=== PATIENT | female | born 1935 | race Caucasian/White ===

== ENCOUNTER 2016-10-04 04:14 | Observation (INO) | payer OTHER ==
[~2016-10-04] VITALS: Ht 160 cm; Wt 62.5 kg
--- NOTE | 2016-10-04 05:25 | ED ORDER SUMMARY ---
..... Patient: YOBANY ELAINE OrderSheet [facility] VisitID: [id number] [address] [place] [address] 81y, F Registration Date/Time: 10/04/2016 ORDER SHEET Weight: 61.2 kg (stated) Allergies: No Known Drug Allergy GENERAL ORDERS: Chest 1V Urgent (04:35 10/04/2016 PHutchinson DO) (Ack 4:37 AMcQuoid ER Tech1) (4:45 AMcQuoid ER Tech1) Justice Court Judge (Continuous) (04:35 10/04/2016 PHutchinson DO) (Ack 4:37 AMcQuoid ER Tech1) (4:38 EInderbitzen R.N.) (4:38 AMcQuoid ER Tech1) UA-Culture if indicated Urgent (04:36 10/04/2016 PHutchinson DO) (Ack 4:37 AMcQuoid ER Tech1) (5:13 AMcQuoid ER Tech1) Cardiac Panel Stat (04:36 10/04/2016 PHutchinson DO) (Ack 4:37 AMcQuoid ER Tech1) (4:38 AMcQuoid ER Tech1) BNP Urgent (04:36 10/04/2016 PHutchinson DO) (Ack 4:37 AMcQuoid ER Tech1) (4:38 AMcQuoid ER Tech1) D-Dimer Urgent (04:36 10/04/2016 PHutchinson DO) (Ack 4:37 AMcQuoid ER Tech1) (4:38 AMcQuoid ER Tech1) Amylase Urgent (04:36 10/04/2016 PHutchinson DO) (Ack 4:37 AMcQuoid ER Tech1) (4:38 AMcQuoid ER Tech1) PT with INR Urgent (04:36 10/04/2016 PHutchinson DO) (Ack 4:37 AMcQuoid ER Tech1) (4:38 AMcQuoid ER Tech1) TSH Urgent (04:36 10/04/2016 PHutchinson DO) (Ack 4:37 AMcQuoid ER Tech1) (4:38 AMcQuoid ER Tech1) Oxygen (2 L/min) (NC) (04:36 10/04/2016 [facility]) (Ack 4:37 AMcQuoid ER Tech1) (4:38 EInderbitzen R.N.) (4:38 AMcQuoid ER Tech1) Pulse oximeter (04:36 10/04/2016 [facility]) (Ack 4:37 AMcQuoid ER Tech1) (4:38 EInderbitzen R.N.) (4:38 AMcQuoid ER Tech1) EKG - ER Stat (04:36 10/04/2016 [facility]) (Ack 4:37 AMcQuoid ER Tech1) (4:38 EInderbitzen R.N.) (4:38 AMcQuoid ER Tech1) Vitals (04:36 10/04/2016 [facility]) (Ack 4:37 AMcQuoid ER Tech1) (4:38 EInderbitzen R.N.) (4:38 AMcQuoid ER Tech1) Old Records (prmce) (04:47 10/04/2016 [facility]) (4:48 AMcQuoid ER Tech1) CTA Thorax w Cont (No) (N/A) (elevated d-dimer) Urgent (05:05 10/04/2016 [facility]) (Ack 5:07 AMcQuoid ER Tech1) (5:49 Susanne) Lipase Urgent (05:51 10/04/2016 [facility]) (5:55 AMcQuoid ER Tech1) MEDICATION ORDERS: Albuterol Neb Tx 2 unit doses (NOW, HHN) (04:47 10/04/2016 [facility]) (Ack 4:49 EInderbitzen R.N.) (4:55 EInderbitzen R.N.) Lovenox Subcut 60 mg (NOW) (05:25 10/04/2016 [facility]) (Ack 5:28 EInderbitzen R.N.) (5:47 EInderbitzen R.N.) Azithromycin PO 500 mg (NOW) (05:35 10/04/2016 [facility]) (Ack 5:39 EInderbitzen R.N.) (5:47 EInderbitzen R.N.) IV FLUIDS: IV NS : initial bolus 250 mL (1000 mL/hr), then 250 mL/hr for X3 (NOW) (04:35 10/04/2016 Fannie HERNANDEZ) (Ack 4:39 EInderbittiffany R.N.) (4:50 EInderbitzen R.N.) Solu-MEDROL IV 125 mg (NOW) (04:48 10/04/2016 hansel HERNANDEZ) (Ack 4:49 EInderbitzen R.N.) (4:56 EIndpapito R.N.) ORDER SHEET NOTES: [Electronically signed by Vinayak Gu DO (06:40 10/04/2016)] [Electronically signed by Adela Lindsey R.N. (20:56 10/08/2016)] [Electronically locked/signed by Adela Lindsey R.N. (20:56 10/08/2016)]
--- NOTE | 2016-10-04 05:25 | ED NURSING NOTES ---
Clinical Report - Nurses [facility] [address] [place] [address] 10/04/2016 4:14 [id number] Triage time 04:Oct 04 2016. Acuity: LEVEL 2. Chief Complaint: SHORTNESS OF BREATH, "ASTHMA ATTACK" and WHEEZING. 04:20 10/04/16. SEPSIS SCREEN: Sepsis Screen. Negative (no infection suspected/documented). MARLEN COMA SCORE: Marlen Coma Scale: 15- eyes open spontaneously (4); best verbal response- oriented x 4 (5); best motor response- obeys commands (6). --04:30 Adela Lindsey R.N. 04:20 10/04/16. BP: 154/73. HR: 86. RR: 24. O2 saturation: 90%. Temp: 97.7 F. Pain level now 0/10. --04:30 Adela Lindsey R.N. Weight: 61.2 kg stated. Height/Length: 63 inches Per Patient. BMI: 23.9. --04:20 Adela Lindsey R.N. Medications Atenolol Oral (Tablet 100 mg) 1 tablet, daily (morning). --04:34 Adela Lindsey R.N. Citalopram Hydrobromide Oral (Tablet 20 mg) 1 tablet, daily (morning). --04:34 Adela Lindsey R.N. AmLODIPine Besylate Oral (Tablet 5 mg) 1 tablet, 2x a day. --04:35 Adela Lindsey R.N. Lisinopril Oral (Tablet 20 mg) 1 tablet, 2x a day. --04:35 Adela Lindsey R.N. Atorvastatin Calcium Oral (Tablet 20 mg) 1 tablet, daily (evening). --04:36 Adela Lindsey R.N. Aspirin Oral (Tablet 81 mg) 1 tablet, daily (evening). --04:36 Adela Lindsey R.N. Albuterol Sulfate HFA Inhalation (Aerosol Solution 108 (90 Base) mcg/act) 2 puffs , 4x a day as needed. --04:37 Adela Lindsey R.N. Allergies No Known Drug Allergy. --04:22 Adela Lindsey R.N. Medication/allergy information source: the patient. --04:30 Adela Lindsey R.N. History Arrived by EMS. Historian: patient. This started today. Onset. (0100 this morning). ( states woke at 0100 this morning a bit short of breath,it got progressively worse, was unable to fall back asleep. called ems for help). She has had a cough and wheezing. No fever, chills, chest pain or back pain. Treatment LEGISLATIVE ASSISTANT: Oxygen administered by nasal cannula. Pulse oximeter applied (90). engine monitor applied- Lead II. Medications given- (duoneb). PAST MEDICAL HX: Immunizations: seasonal influenza. Has not received pneumonia vaccine. SOCIAL HX: Current some days light tobacco smoker. No alcohol use or drug use. No infectious disease exposure. ABUSE ASSESSMENT: No report of abuse. SELF HARM ASSESSMENT: A self harm assessment was performed. The patient answered "no" to the question "Have you recently felt down, depressed, or hopeless?", "Have you noticed less interest or pleasure in doing things?", "Do you have thoughts of harming or killing yourself?", "Are you here because you tried to hurt yourself?", "Have you ever tried to hurt yourself before today?", "Have you recently had thoughts about harming or killing others?" and "Do you have any dangerous items in your possession?". NUTRITIONAL RISK ASSESSMENT: The nutritional risk assessment revealed no deficiencies. FUNCTIONAL ASSESSMENT: Functional assessment: no impairments noted. LEARNING NEEDS ASSESSMENT: The learning needs assessment revealed no barriers. SKIN INTEGRITY ASSESSMENT: Skin integrity risk assessment completed. No skin integrity risk identified. --04:30 Adela Lindsey R.N. PROBLEMS: Hypercholesterolemia. Hypertension. Peripheral Vascular Disease. COPD - Chronic Obstructive Pulmonary Disease. --04:24 Indyfnzen, Adela, R.N. ADDITIONAL SURGERIES: Peripheral stents. --04:24 dAela Lindsey R.N. Interventions ID band on patient. --04:30 Adela Lindsey R.N. PHYSICAL ASSESSMENT 04:10/04/16. To room via stretcher. GENERAL / NEURO / PSYCH: Alert. Appears anxious. HEENT: Mucous membranes are pink. RESPIRATORY: Mild respiratory distress. The patient can speak a few words at a time. Wheezing present. CVS: Normal sinus rhythm noted. GI / : Abdomen soft. SKIN: Skin is dry. Skin is cool. Normal skin turgor. --04:30 Adela Lindsey R.N. NURSING PROGRESS NOTES 04:10/04/16. The initial plan of care for this patient includes an assessment with efforts to address patient positioning; impairment of the respiratory system; educational needs regarding the patient's medications. This plan of care was discussed with the patient. engine monitor, pulse oximeter and NIBP monitor placed on patient; engine monitor- Lead II; monitor alarms on. Patient gowned. Reassurance given. Patient identifiers checked. Call light placed in reach. Side rails up x 2. Bed placed in lowest position. Brakes of bed on. Patient ready for evaluation. --04:31 Adela Lindsey R.N. 04:37. per RT. --04:41 McQuoid, Gina, ER Tech1 04:37. EKG was performed. per RT. --04:42 McQuoid Gina, ER Tech1 Telemetry strip posted to chart. --04:42 McQuoid Gina, ER Tech1 04:37 Records requested from [facility] [place]. --04:42 McQuarlette Gina, ER Tech1 04:44 Portable CXR in progress. --04:44 McToyin Gina, ER Tech1 04:20 10/04/2016 Site #1 started prior to arrival by EMS via IV in the left hand with an 20g angiocath; one attempt. --04:50 Adela Lindsey R.N. 04:45 10/04/2016 Started bag #1 1000 mL IV Fluids IV NS (Saline); bolus of 250 mL over 15 minute(s) then at 250 mL/hr over 3 hour(s) via site #1 via IV pump. Allergies verified. IV patency established. IV site checked: no pain, redness, or swelling. IV flushed thoroughly pre- and post-medication administration. --04:50 Adela Lindsey R.N. 04:50 10/04/2016 Albuterol Neb TX Nebulizer 2.5 mg given. Given by the respiratory therapist. Allergies verified and confirmed 5 rights. --04:55 Adela Lindsey R.NBean 04:53 10/04/2016 SOLU-MEDROL (MethylPREDNISolone Sodium Succ) IVP 125 mg given over 2 minute(s) via site #1. Allergies verified and confirmed 5 rights. IV patency established. IV site checked: no pain, redness, or swelling. IV flushed thoroughly pre- and post-medication administration. IVP given by RN. --04:56 Adela Lindsey R.NBean 05:05. Checked patient name and birthdate: patient confirmed. Clean catch urine collected; sample sent to lab. Specimen labeled in the presence of the patient. --05:13 Gina Ontiveros ER Tech1 05:17 10/04/2016 Site #2 started via IV in the right antecubital space with an 18g angiocath, with aseptic technique and good blood return; one attempt. Saline lock flushed with 10 mL saline. --05:19 Adela Lindsey R.NBean 05:19 10/04/16. BP: 160/71. HR: 90. RR: 24. O2 saturation: 92%. Pain level now 0/10. --05:19 Adela Lindsey R.NBean 05:19 10/04/16. Cardiac rhythm: normal sinus rhythm. The patient reports no complaints and she is calm. Overall patient status is improved- she states feels better. --05:19 Adela Lindsey R.NBean 05:27. Patient transported to CT by stretcher with tech. --05:28 Gina Ontiveros ER Tech1 05:29 10/04/16. Patient transported to CT by stretcher with tech. --05:29 Adela Lindsey R.NBean 05:42. Patient returned from CT by stretcher with tech. --05:42 McQuoid, Gina, ER Tech1 05:44 10/04/16. BP: 156/70. HR: 91. RR: 22. O2 saturation: 93%. Pain level now 0/10. --05:48 Adela Lindsey R.NBean 05:44 10/04/16. Cardiac rhythm: normal sinus rhythm. The patient reports no complaints and she is calm and resting quietly. Overall patient status is improved- she states feels better. ( still has wheezing but improved). Patient returned from CT by stretcher with O2 and tech. --05:48 Adela Lindsey R.NBean 05:45 10/04/2016 Azithromycin PO Tablets 500 mg given. Allergies verified and confirmed 5 rights. --05:47 Adela Lindsey R.NBean 05:46 10/04/2016 Lovenox (Enoxaparin Sodium) Subcutaneous 60 mg given. Given in the left abdomen. Allergies verified and confirmed 5 rights. --05:47 Adela Lindsey R.N. DISPOSITION / DISCHARGE 05:53 10/04/2016 Site #[address] upon admission; patent. --05:53 Adela Lindsey R.NBean 05:53 10/04/2016 IV Fluids IV NS Continued: at the rate of 250 mL/hr. 600 mL remaining bag #1. IV patency established. IV site checked: no pain, redness, or swelling. IV flushed thoroughly. --05:53 Adela Lindsey R.NBean 05:54 10/04/2016 Site #[address] upon admission; patent. --05:54 Adela Lindsey R.NBean 05:54 10/04/16. Cardiac rhythm: normal sinus rhythm. Condition at departure: improved and stable. The goals identified in the patient's plan of care were met. Admitted to Acute Care. Transported via stretcher by tech with IV and O2. Report was given to a nurse via a phone call. Report included patient's care, treatment, medications, reviewed medication reconcilliation, and condition (including any recent changes or anticipated changes). All questions were answered. (to MARLY Valencia). --05:54 Adela Lidnsey R.N. 05:47 10/04/16. BP: 156/70. HR: 91. RR: 22. O2 saturation: 93%. Pain level now 0/10. 05:19 10/04/16. BP: 160/71. HR: 90. RR: 24. O2 saturation: 92%. Pain level now 0/10. 04:55 10/04/16. BP: 137/71. HR: 80. RR: 24. O2 saturation: 93%. Pain level now: 0/10. 04:21 10/04/16. BP: 154/73. HR: 86. RR: 24. O2 saturation: 90%. Temp: 97.7 F. Pain level now 0/10. --05:54 Adela Lindsey R.N. 05:55 10/04/16. ( MD at bedside to review all finding and plan of admission). --05:55 Adela Lindsey R.N. Locked/Released at 10/08/2016 20:56 by Adela Lindsey R.N.
--- NOTE | 2016-10-04 05:25 | ED CLINICAL REPORT ---
Clinical Report - Physicians/Mid Levels [facility] [address] [place] [address] 10/04/2016 4:14 Patient: YOBANY ELAINE Time Seen: 04:34. Arrived- By ambulance. Historian- patient and EMS personnel. HISTORY OF PRESENT ILLNESS Chief Complaint: DYSPNEA and HISTORY OF CHRONIC OBSTRUCTIVE PULMONARY DISEASE. This started about 3 hours ago and is still present. It was gradual in onset and has been constant. The dyspnea is severe and is worsened by exertion, is improved by rest and is improved with oxygen. The patient has had a cough . No blood tinged sputum or frankly bloody sputum, wheezing and dyspnea on exertion. No fever, chest pain, orthopnea or paroxysmal nocturnal dyspnea. Similar symptoms previously: Milder. ( Had similar episode necessitating several day admission to [facility] last month - pt states the episode today was "worse"). Recent medical care: The patient was seen recently at another facility in the emergency department. Seen for similar symptoms. REVIEW OF SYSTEMS The patient is post-menopausal. She has had joint pain, but not had weight loss. No sore throat, nasal discharge, sinus drainage, nausea or vomiting. No abdominal pain, diarrhea, black stools, bloody stools or headache. No fainting episodes, difficulty with urination, excessive urination, skin rash or enlarged lymph nodes. Denies current . All systems otherwise negative, except as recorded above. PAST HISTORY PROBLEMS: Chronic LBBB Hypercholesterolemia. Hypertension. Hypothyroidism. Peripheral Vascular Disease. COPD - Chronic Obstructive Pulmonary Disease. DVT. Gallstones with duct stone removed by ERCP [facility]. SURGERIES: Peripheral vascular stents - done in [place] [facility] Hysterectomy Tubal ligation. Medications: Albuterol Sulfate HFA Inhalation (Aerosol Solution 108 (90 Base) mcg/act) 2 puffs , 4x a day as needed. Aspirin Oral (Tablet 81 mg) 1 tablet, daily (evening). Atorvastatin Calcium Oral (Tablet 20 mg) 1 tablet, daily (evening). Lisinopril Oral (Tablet 20 mg) 1 tablet, 2x a day. AmLODIPine Besylate Oral (Tablet 5 mg) 1 tablet, 2x a day. Citalopram Hydrobromide Oral (Tablet 20 mg) 1 tablet, daily (morning). Atenolol Oral (Tablet 100 mg) 1 tablet, daily (morning). Allergies: No Known Drug Allergy. SOCIAL HISTORY Smoker- current status unknown. No alcohol use or drug use. Residence: born in [facility]; recently moved from the [facility] to [place] Is a local resident. Has good social support. FAMILY HISTORY Heart disease in first-degree relative (a child); cancer in first-degree relative (father and sibling). ADDITIONAL NOTES The nursing notes have been reviewed. PHYSICAL EXAM Vital Signs: 10/04/2016 04:20 BP: 154/73. HR: 86. RR: 24. O2 saturation: 90%. Temp: 97.7 F. Appearance: Alert. Patient in moderate distress. Eyes: Eyes normal inspection. No pale conjunctivae or scleral icterus. ENT: Pharynx normal. Uvula midline. No pharyngeal erythema. The mucous membranes are not dry. Neck: Normal inspection. No jugular venous distention. Neck supple. CVS: Normal heart rate and rhythm. Pulses normal. Respiratory: Moderate respiratory distress with accessory muscle use, tachypnea and hypoventilation. Prolonged expirations. Decreased air movement. Wheezing present. No stridor, rales or rhonchi. Abdomen: Soft and nontender. Back: Normal inspection. Skin: Skin warm and dry. Normal skin color. Normal skin turgor. Extremities: Extremities exhibit normal ROM. No calf tenderness. No lower extremity edema. Neuro: Oriented X 3. No motor deficit. LABS, X-RAYS, AND EKG EKG: EKG time: (04:37). Normal sinus rhythm. Rate: 85. LBBB. Non-specific ST segment / T wave abnormalities. EKG unchanged when compared with prior EKG. (vs report from [facility] 08/2016). The study has been interpreted contemporaneously by me. The EKG appears to be a good tracing. Rhythm Strip #1: Normal sinus rhythm. Regular rhythm. Wide QRS complexes. Left bundle branch block. Chest X-ray: No acute disease. Views: AP (portable). Technique: good. The X-rays were interpreted contemporaneously by me. The X-rays were discussed with the radiologist (via PACS note). CTA Pulmonary Arteries: Great vessels normal. No evidence of pulmonary embolism. No pulmonary embolism. Normal heart size. Mediastinum normal. No pneumothorax. Right lung base nodule Aorta calcification IMPRESSION: 1. No evidence of pulmonary embolus. 2. Mild interstitial change at the right lung base with moderate bronchial wall thickening. Consider bronchopneumonia or resolving pneumonia. 3. There is a 7 mm nodular density in the right anterior mid lung which is most likely postinflammatory, although a neoplastic nodule should be considered. Comparison with prior outside studies may be of assistance in evaluating. If these are unavailable, repeat noncontrast CT in 6 weeks is recommended. 4. Marked calcified atheromatous changes of the aorta and great vessels. The CTA was performed with contrast. The study was independently viewed by me, interpreted by the radiologist and discussed with the radiologist. Laboratory Tests: UA-Culture if indicated: (ANUP: 10/04/2016 05:05) ( [facility] 10/04/2016 05:21) Final results Test Result Flag Units (Reference) URINE COLOR YELLOW URINE APPEARANCE CLEAR URINE GLUCOSE NEGATIVE (NEGATIVE) URINE BILIRUBIN NEGATIVE (NEGATIVE) URINE KETONE NEGATIVE (NEGATIVE) URINE SPECIFIC GRAVITY 1.020 (1.010-1.030) URINE PH 7.5 (5.0-8.0) URINE PROTEIN 2+ (NEGATIVE) URINE UROBILINOGEN 0.2 EU/dL (0.2-1.0) URINE NITRITE NEGATIVE (NEGATIVE) URINE BLOOD TRACE-INTACT (NEGATIVE) URINE LEUK ESTERASE NEGATIVE (NEGATIVE) URINE RBC 0-1 rbc/hpf (0-1) URINE WBC RARE wbc/hpf (0-1) URINE EPITHELIAL CELLS NONE SEEN EPI/hpf (0-5) URINE BACTERIA NONE SEEN (NONE SEEN) URINE COMMENT CULT NOT INDICATED URINE CULTURES ARE SET-UP BASED ON THE FOLLOWING CRITERIA:POSITIVE NITRITEPOSITIVE LEUKOCYTE ESTERASEGREATER THAN 10 WHITE BLOOD CELLSMODERATE (2+) OR GREATER BACTERIA CBC w Diff: (ANUP: 10/04/2016 04:30) ( [facility] 10/04/2016 04:50) Final results Test Result Flag Units (Reference) WHITE BLOOD COUNT 6.7 K/uL (4.5-11.5) RED BLOOD COUNT 4.85 M/uL (4.00-5.20) HEMOGLOBIN 15.5 gm/dL (12.0-16.0) HEMATOCRIT 45.4 % (36.0-46.0) MEAN CELL VOLUME 94 fL (80-100) MEAN CORPUSCULAR HGB 32 pg (26-34) MEAN CORPUSCULAR HGB CONC 34 g/dL (31-37) RED CELL DISTRIBUTION WIDTH 13.4 % (11.6-14.8) PLATELET COUNT 168 K/uL (150-400) NEUTROPHIL % 50.3 % (50-75) LYMPH % 32.4 % (25-40) MONO % 6.2 % (3-14) EOSINOPHIL % 10.7 H % (0-4) BASOPHIL % 0.4 % (0-2) PT with INR: (ANUP: 10/04/2016 04:30) ( [facility] 10/04/2016 04:55) Final results Test Result Flag Units (Reference) INR 1.0 (0.8-1.2) Low Intensity Therapy: INR 1.5-2.0 PT range 18.5-23.1Mod.Intensity Therapy: INR 2.0-3.0 PT range 23.1-31.5High Intensity Therapy: INR 2.5-3.5 PT range 27.4-35.5High Intensity Therapy 2: INR 3.0-4.0 PT range 31.5-39.3 D-DIMER QUANTITATIVE 2.74 H ug/mLFEU (0.27-0.52) The primary value of this quantitative assay relates toits negative predictive value (i.e. exclusion) of pulmonaryembolism/deep vein thrombosis/DIC.Elevated levels of d-dimer may also occur with:, age, cancer, inflammation, liver disease,post-op, infection, hematoma, coronary disease, peripheralarteriopathy, bleeding disorders and thrombolytic treatment.Results should be correlated with other clinical andradiological data.Testing Methodology: Latex Immunoassay Lipase: (ANUP: 10/04/2016 05:30) ( [facility] 10/04/2016 06:16) Final results Test Result Flag Units (Reference) LIPASE 594 H U/L (73-393) BNP: (ANUP: 10/04/2016 04:30) ( [facility] 10/04/2016 05:07) Final results Test Result Flag Units (Reference) B-TYPE NATRIURETIC PEPTIDE 30.9 pg/ml (5-100) Amylase: (ANUP: 10/04/2016 04:30) ( [facility] 10/04/2016 05:16) Final results Test Result Flag Units (Reference) AMYLASE 116 H U/L (25-115) THYROID STIMULATING HORMONE 7.170 H uIU/mL (0.30-3.74) CHEM 13 PANEL: (ANUP: 10/04/2016 04:30) ( [facility] 10/04/2016 05:05) Final results Test Result Flag Units (Reference) GLUCOSE 170 H mg/dL (70-110) BUN 11 mg/dL (7-18) CREATININE 0.7 mg/dL (0.6-1.3) Estimated GFR >60 mL/min Estimated GFR- >60 mL/min Note: Persistent reduction over 3 months in eGFR<60 mL/min/1.73 m2 defines CKD. Patients with eGFR values>=60 mL/min/1.73 m2 may also have CKD if evidence ofpersistent proteinuria. Additional information may be foundat www.kidney.org. SODIUM 137 mmol/L (136-145) POTASSIUM 4.0 mmol/L (3.5-5.1) CHLORIDE 102 mmol/L (98-107) CARBON DIOXIDE 27 mmol/L (21-32) CALCIUM 9.1 mg/dL (8.5-10.1) TOTAL PROTEIN 7.1 g/dL (6.4-8.2) ALBUMIN 3.8 g/dL (3.3-5.0) BILIRUBIN, TOTAL 0.7 mg/dL (0.0-1.0) ALKALINE PHOSPHATASE 71 U/L (46-116) AST (SGOT) 21 U/L (15-37) ALT (SGPT) 28 U/L (12-78) MAGNESIUM 1.8 mg/dL (1.8-2.4) CPK 49 U/L (24-260) TROPONIN I <0.05 L ng/mL (0.00-1.5) TROPONIN REFERENCE RANGE:<0.1 NEGATIVE0.1-1.5 INDETERMINANT>1.5 POSITIVE . Pulse Oximetry: 10/04/2016 04:20 O2 saturation: 90%. (FIO2-3 liter/min nasal cannula). Interpretation: hypoxemia. PROGRESS AND PROCEDURES Course of Care: Atrovent neb (enroute). Albuterol neb x 2. Solumedrol 125 mg IV. Azithromycin 500 mg po. Patient is stable. Physical exam findings are improved. Symptoms much better. Critical care performed (70 minutes). Time is exclusive of separately billable procedures. Time includes: direct patient care, patient reassessment, coordination of patient care, interpretation of data (laboratory data, pulse oximetry, chest xrays and prior electrocardiograms), review of patient's medical records, family consultation regarding treatment decisions and documentation of patient care. Procedures excluded from critical care time: electrocardiography. Discussed case with hospitalist, (Nikhil call returned 05:25). Reviewed test results. Agreed upon treatment plan and decision to admit. Health care provider will see patient in hospital. Patient/family counseled. Additional history sought (from family and EMS). Old medical records ordered. (from [facility]; no prior visits to [facility]). Transition orders written. Disposition: Admitted to Acute Care. Condition: guarded and improved. CLINICAL IMPRESSION Acquired hypothyroidism. Clinical picture does not suggest pulmonary embolism. Possible Pancreatitis - mild amylase elevation; moderate lipase elevation Pulmonary nodule (needs repeat chest imaging to follow) Elevated d-dimer (nonspecific) [place] resolving pneumonia. (Electronically signed by Vinayak Gu DO 10/04/2016 6:40)
--- NOTE | 2016-10-04 05:25 | ED CLINICAL REPORT ---
Clinical Report - Physicians/Mid Levels [facility] [address] [place] [address] 10/04/2016 4:14 Patient: YOBANY ELAINE Time Seen: 04:34. Arrived- By ambulance. Historian- patient and EMS personnel. HISTORY OF PRESENT ILLNESS Chief Complaint: DYSPNEA and HISTORY OF CHRONIC OBSTRUCTIVE PULMONARY DISEASE. This started about 3 hours ago and is still present. It was gradual in onset and has been constant. The dyspnea is severe and is worsened by exertion, is improved by rest and is improved with oxygen. The patient has had a cough . No blood tinged sputum or frankly bloody sputum, wheezing and dyspnea on exertion. No fever, chest pain, orthopnea or paroxysmal nocturnal dyspnea. Similar symptoms previously: Milder. ( Had similar episode necessitating several day admission to [facility] last month - pt states the episode today was "worse"). Recent medical care: The patient was seen recently at another facility in the emergency department. Seen for similar symptoms. REVIEW OF SYSTEMS The patient is post-menopausal. She has had joint pain, but not had weight loss. No sore throat, nasal discharge, sinus drainage, nausea or vomiting. No abdominal pain, diarrhea, black stools, bloody stools or headache. No fainting episodes, difficulty with urination, excessive urination, skin rash or enlarged lymph nodes. Denies current . All systems otherwise negative, except as recorded above. PAST HISTORY PROBLEMS: Chronic LBBB Hypercholesterolemia. Hypertension. Hypothyroidism. Peripheral Vascular Disease. COPD - Chronic Obstructive Pulmonary Disease. DVT. Gallstones with duct stone removed by ERCP AAA. SURGERIES: Peripheral vascular stents - done in [place] ERCP Hysterectomy Tubal ligation. Medications: Albuterol Sulfate HFA Inhalation (Aerosol Solution 108 (90 Base) mcg/act) 2 puffs , 4x a day as needed. Aspirin Oral (Tablet 81 mg) 1 tablet, daily (evening). Atorvastatin Calcium Oral (Tablet 20 mg) 1 tablet, daily (evening). Lisinopril Oral (Tablet 20 mg) 1 tablet, 2x a day. AmLODIPine Besylate Oral (Tablet 5 mg) 1 tablet, 2x a day. Citalopram Hydrobromide Oral (Tablet 20 mg) 1 tablet, daily (morning). Atenolol Oral (Tablet 100 mg) 1 tablet, daily (morning). Allergies: No Known Drug Allergy. SOCIAL HISTORY Smoker- current status unknown. No alcohol use or drug use. Residence: born in [facility]; recently moved from the [facility] to [place] Is a local resident. Has good social support. FAMILY HISTORY Heart disease in first-degree relative (a child); cancer in first-degree relative (father and sibling). ADDITIONAL NOTES The nursing notes have been reviewed. PHYSICAL EXAM Vital Signs: 10/04/2016 04:20 BP: 154/73. HR: 86. RR: 24. O2 saturation: 90%. Temp: 97.7 F. Appearance: Alert. Patient in moderate distress. Eyes: Eyes normal inspection. No pale conjunctivae or scleral icterus. ENT: Pharynx normal. Uvula midline. No pharyngeal erythema. The mucous membranes are not dry. Neck: Normal inspection. No jugular venous distention. Neck supple. CVS: Normal heart rate and rhythm. Pulses normal. Respiratory: Moderate respiratory distress with accessory muscle use, tachypnea and hypoventilation. Prolonged expirations. Decreased air movement. Wheezing present. No stridor, rales or rhonchi. Abdomen: Soft and nontender. Back: Normal inspection. Skin: Skin warm and dry. Normal skin color. Normal skin turgor. Extremities: Extremities exhibit normal ROM. No calf tenderness. No lower extremity edema. Neuro: Oriented X 3. No motor deficit. LABS, X-RAYS, AND EKG EKG: EKG time: (04:37). Normal sinus rhythm. Rate: 85. LBBB. Non-specific ST segment / T wave abnormalities. EKG unchanged when compared with prior EKG. (vs report from [facility] 08/2016). The study has been interpreted contemporaneously by me. The EKG appears to be a good tracing. Rhythm Strip #1: Normal sinus rhythm. Regular rhythm. Wide QRS complexes. Left bundle branch block. Chest X-ray: No acute disease. Views: AP (portable). Technique: good. The X-rays were interpreted contemporaneously by me. The X-rays were discussed with the radiologist (via PACS note). CTA Pulmonary Arteries: Great vessels normal. No evidence of pulmonary embolism. No pulmonary embolism. Normal heart size. Mediastinum normal. No pneumothorax. Right lung base nodule Aorta calcification IMPRESSION: 1. No evidence of pulmonary embolus. 2. Mild interstitial change at the right lung base with moderate bronchial wall thickening. Consider bronchopneumonia or resolving pneumonia. 3. There is a 7 mm nodular density in the right anterior mid lung which is most likely postinflammatory, although a neoplastic nodule should be considered. Comparison with prior outside studies may be of assistance in evaluating. If these are unavailable, repeat noncontrast CT in 6 weeks is recommended. 4. Marked calcified atheromatous changes of the aorta and great vessels. The CTA was performed with contrast. The study was independently viewed by me, interpreted by the radiologist and discussed with the radiologist. Laboratory Tests: UA-Culture if indicated: (ANUP: 10/04/2016 05:05) ( [facility] 10/04/2016 05:21) Final results Test Result Flag Units (Reference) URINE COLOR YELLOW URINE APPEARANCE CLEAR URINE GLUCOSE NEGATIVE (NEGATIVE) URINE BILIRUBIN NEGATIVE (NEGATIVE) URINE KETONE NEGATIVE (NEGATIVE) URINE SPECIFIC GRAVITY 1.020 (1.010-1.030) URINE PH 7.5 (5.0-8.0) URINE PROTEIN 2+ (NEGATIVE) URINE UROBILINOGEN 0.2 EU/dL (0.2-1.0) URINE NITRITE NEGATIVE (NEGATIVE) URINE BLOOD TRACE-INTACT (NEGATIVE) URINE LEUK ESTERASE NEGATIVE (NEGATIVE) URINE RBC 0-1 rbc/hpf (0-1) URINE WBC RARE wbc/hpf (0-1) URINE EPITHELIAL CELLS NONE SEEN EPI/hpf (0-5) URINE BACTERIA NONE SEEN (NONE SEEN) URINE COMMENT CULT NOT INDICATED URINE CULTURES ARE SET-UP BASED ON THE FOLLOWING CRITERIA:POSITIVE NITRITEPOSITIVE LEUKOCYTE ESTERASEGREATER THAN 10 WHITE BLOOD CELLSMODERATE (2+) OR GREATER BACTERIA CBC w Diff: (ANUP: 10/04/2016 04:30) ( [facility] 10/04/2016 04:50) Final results Test Result Flag Units (Reference) WHITE BLOOD COUNT 6.7 K/uL (4.5-11.5) RED BLOOD COUNT 4.85 M/uL (4.00-5.20) HEMOGLOBIN 15.5 gm/dL (12.0-16.0) HEMATOCRIT 45.4 % (36.0-46.0) MEAN CELL VOLUME 94 fL (80-100) MEAN CORPUSCULAR HGB 32 pg (26-34) MEAN CORPUSCULAR HGB CONC 34 g/dL (31-37) RED CELL DISTRIBUTION WIDTH 13.4 % (11.6-14.8) PLATELET COUNT 168 K/uL (150-400) NEUTROPHIL % 50.3 % (50-75) LYMPH % 32.4 % (25-40) MONO % 6.2 % (3-14) EOSINOPHIL % 10.7 H % (0-4) BASOPHIL % 0.4 % (0-2) PT with INR: (ANUP: 10/04/2016 04:30) ( [facility] 10/04/2016 04:55) Final results Test Result Flag Units (Reference) INR 1.0 (0.8-1.2) Low Intensity Therapy: INR 1.5-2.0 PT range 18.5-23.1Mod.Intensity Therapy: INR 2.0-3.0 PT range 23.1-31.5High Intensity Therapy: INR 2.5-3.5 PT range 27.4-35.5High Intensity Therapy 2: INR 3.0-4.0 PT range 31.5-39.3 D-DIMER QUANTITATIVE 2.74 H ug/mLFEU (0.27-0.52) The primary value of this quantitative assay relates toits negative predictive value (i.e. exclusion) of pulmonaryembolism/deep vein thrombosis/DIC.Elevated levels of d-dimer may also occur with:, age, cancer, inflammation, liver disease,post-op, infection, hematoma, coronary disease, peripheralarteriopathy, bleeding disorders and thrombolytic treatment.Results should be correlated with other clinical andradiological data.Testing Methodology: Latex Immunoassay Lipase: (ANUP: 10/04/2016 05:30) ( [facility] 10/04/2016 06:16) Final results Test Result Flag Units (Reference) LIPASE 594 H U/L (73-393) BNP: (ANUP: 10/04/2016 04:30) ( [facility] 10/04/2016 05:07) Final results Test Result Flag Units (Reference) B-TYPE NATRIURETIC PEPTIDE 30.9 pg/ml (5-100) Amylase: (ANUP: 10/04/2016 04:30) ( [facility] 10/04/2016 05:16) Final results Test Result Flag Units (Reference) AMYLASE 116 H U/L (25-115) THYROID STIMULATING HORMONE 7.170 H uIU/mL (0.30-3.74) CHEM 13 PANEL: (ANUP: 10/04/2016 04:30) ( [facility] 10/04/2016 05:05) Final results Test Result Flag Units (Reference) GLUCOSE 170 H mg/dL (70-110) BUN 11 mg/dL (7-18) CREATININE 0.7 mg/dL (0.6-1.3) Estimated GFR >60 mL/min Estimated GFR- >60 mL/min Note: Persistent reduction over 3 months in eGFR<60 mL/min/1.73 m2 defines CKD. Patients with eGFR values>=60 mL/min/1.73 m2 may also have CKD if evidence ofpersistent proteinuria. Additional information may be foundat www.kidney.org. SODIUM 137 mmol/L (136-145) POTASSIUM 4.0 mmol/L (3.5-5.1) CHLORIDE 102 mmol/L (98-107) CARBON DIOXIDE 27 mmol/L (21-32) CALCIUM 9.1 mg/dL (8.5-10.1) TOTAL PROTEIN 7.1 g/dL (6.4-8.2) ALBUMIN 3.8 g/dL (3.3-5.0) BILIRUBIN, TOTAL 0.7 mg/dL (0.0-1.0) ALKALINE PHOSPHATASE 71 U/L (46-116) AST (SGOT) 21 U/L (15-37) ALT (SGPT) 28 U/L (12-78) MAGNESIUM 1.8 mg/dL (1.8-2.4) CPK 49 U/L (24-260) TROPONIN I <0.05 L ng/mL (0.00-1.5) TROPONIN REFERENCE RANGE:<0.1 NEGATIVE0.1-1.5 INDETERMINANT>1.5 POSITIVE . Pulse Oximetry: 10/04/2016 04:20 O2 saturation: 90%. (FIO2-3 liter/min nasal cannula). Interpretation: hypoxemia. PROGRESS AND PROCEDURES Course of Care: Atrovent neb (enroute). Albuterol neb x 2. Solumedrol 125 mg IV. Azithromycin 500 mg po. Patient is stable. Physical exam findings are improved. Symptoms much better. Critical care performed (70 minutes). Time is exclusive of separately billable procedures. Time includes: direct patient care, patient reassessment, coordination of patient care, interpretation of data (laboratory data, pulse oximetry, chest xrays and prior electrocardiograms), review of patient's medical records, family consultation regarding treatment decisions and documentation of patient care. Procedures excluded from critical care time: electrocardiography. Discussed case with hospitalist, (Nikhil call returned 05:25). Reviewed test results. Agreed upon treatment plan and decision to admit. Health care provider will see patient in hospital. Patient/family counseled. Additional history sought (from family and EMS). Old medical records ordered. (from [facility]; no prior visits to [facility]). Transition orders written. Disposition: Admitted to Acute Care. Condition: guarded and improved. CLINICAL IMPRESSION Acquired hypothyroidism. Clinical picture does not suggest pulmonary embolism. Possible Pancreatitis - mild amylase elevation; moderate lipase elevation Pulmonary nodule (needs repeat chest imaging to follow) Elevated d-dimer (nonspecific) Albertoley resolving pneumonia. (Electronically signed by Vinayak Gu DO 10/04/2016 6:40)
--- NOTE | 2016-10-04 05:25 | ED NURSING NOTES ---
Clinical Report - Nurses [facility] [address] [place] [address] 10/04/2016 4:14 Patient: YOBANY ELAINE [facility]#: [id number] TRIAGE Triage time 04:Oct 04 2016. Acuity: LEVEL 2. Chief Complaint: SHORTNESS OF BREATH, "ASTHMA ATTACK" and WHEEZING. 04:20 10/04/16. SEPSIS SCREEN: Sepsis Screen. Negative (no infection suspected/documented). MARLEN COMA SCORE: Marlen Coma Scale: 15- eyes open spontaneously (4); best verbal response- oriented x 4 (5); best motor response- obeys commands (6). --04:30 Adela Lindsey R.N. 04:20 10/04/16. BP: 154/73. HR: 86. RR: 24. O2 saturation: 90%. Temp: 97.7 F. Pain level now 0/10. --04:30 Adela Lindsey R.N. Weight: 61.2 kg stated. Height/Length: 63 inches Per Patient. BMI: 23.9. --04:20 Adela Lindsey R.N. Medications Atenolol Oral (Tablet 100 mg) 1 tablet, daily (morning). --04:34 Adela Lindsey R.N. Citalopram Hydrobromide Oral (Tablet 20 mg) 1 tablet, daily (morning). --04:34 Adela Lindsey R.N. AmLODIPine Besylate Oral (Tablet 5 mg) 1 tablet, 2x a day. --04:35 Adela Lindsey R.N. Lisinopril Oral (Tablet 20 mg) 1 tablet, 2x a day. --04:35 Adela Lindsey R.N. Atorvastatin Calcium Oral (Tablet 20 mg) 1 tablet, daily (evening). --04:36 Adela Lindsey R.N. Aspirin Oral (Tablet 81 mg) 1 tablet, daily (evening). --04:36 Adela Lindsey R.N. Albuterol Sulfate HFA Inhalation (Aerosol Solution 108 (90 Base) mcg/act) 2 puffs , 4x a day as needed. --04:37 Adela Lindsey R.N. Allergies No Known Drug Allergy. --04:22 Adela Lindsey R.N. Medication/allergy information source: the patient. --04:30 Adela Lindsey R.N. History Arrived by EMS. Historian: patient. This started today. Onset. (0100 this morning). ( states woke at 0100 this morning a bit short of breath,it got progressively worse, was unable to fall back asleep. called ems for help). She has had a cough and wheezing. No fever, chills, chest pain or back pain. Treatment HOSPITAL UNIT COORDINATOR: Oxygen administered by nasal cannula. Pulse oximeter applied (90). facility technician applied- Lead II. Medications given- (duoneb). PAST MEDICAL HX: Immunizations: seasonal influenza. Has not received pneumonia vaccine. SOCIAL HX: Current some days light tobacco smoker. No alcohol use or drug use. No infectious disease exposure. ABUSE ASSESSMENT: No report of abuse. SELF HARM ASSESSMENT: A self harm assessment was performed. The patient answered "no" to the question "Have you recently felt down, depressed, or hopeless?", "Have you noticed less interest or pleasure in doing things?", "Do you have thoughts of harming or killing yourself?", "Are you here because you tried to hurt yourself?", "Have you ever tried to hurt yourself before today?", "Have you recently had thoughts about harming or killing others?" and "Do you have any dangerous items in your possession?". NUTRITIONAL RISK ASSESSMENT: The nutritional risk assessment revealed no deficiencies. FUNCTIONAL ASSESSMENT: Functional assessment: no impairments noted. LEARNING NEEDS ASSESSMENT: The learning needs assessment revealed no barriers. SKIN INTEGRITY ASSESSMENT: Skin integrity risk assessment completed. No skin integrity risk identified. --04:30 Adela Lindsey R.N. PROBLEMS: Hypercholesterolemia. Hypertension. Peripheral Vascular Disease. COPD - Chronic Obstructive Pulmonary Disease. --04:24 Indyfnzen, Adela, R.N. ADDITIONAL SURGERIES: Peripheral stents. --04:24 Adela Lindsey R.N. Interventions ID band on patient. --04:30 Adela Lindsey R.N. PHYSICAL ASSESSMENT 04:10/04/16. To room via stretcher. GENERAL / NEURO / PSYCH: Alert. Appears anxious. HEENT: Mucous membranes are pink. RESPIRATORY: Mild respiratory distress. The patient can speak a few words at a time. Wheezing present. CVS: Normal sinus rhythm noted. GI / : Abdomen soft. SKIN: Skin is dry. Skin is cool. Normal skin turgor. --04:30 Adela Lindsey R.N. NURSING PROGRESS NOTES 04:10/04/16. The initial plan of care for this patient includes an assessment with efforts to address patient positioning; impairment of the respiratory system; educational needs regarding the patient's medications. This plan of care was discussed with the patient. facility technician, pulse oximeter and NIBP monitor placed on patient; exercise planner- Lead II; monitor alarms on. Patient gowned. Reassurance given. Patient identifiers checked. Call light placed in reach. Side rails up x 2. Bed placed in lowest position. Brakes of bed on. Patient ready for evaluation. --04:31 Adela Lindsey R.N. 04:37. per RT. --04:41 McQuoid, Gina, ER Tech1 04:37. EKG was performed. per RT. --04:42 McQuoid Gina, ER Tech1 Telemetry strip posted to chart. --04:42 McQuoid Gina, ER Tech1 04:37 Records requested from [facility]. --04:42 McQuarlette Gina, ER Tech1 04:44 Portable CXR in progress. --04:44 McToyin Gina, ER Tech1 04:20 10/04/2016 Site #1 started prior to arrival by EMS via IV in the left hand with an 20g angiocath; one attempt. --04:50 Adela Lindsey R.N. 04:45 10/04/2016 Started bag #1 1000 mL IV Fluids IV NS (Saline); bolus of 250 mL over 15 minute(s) then at 250 mL/hr over 3 hour(s) via site #1 via IV pump. Allergies verified. IV patency established. IV site checked: no pain, redness, or swelling. IV flushed thoroughly pre- and post-medication administration. --04:50 Adela Lindsey R.N. 04:50 10/04/2016 Albuterol Neb TX Nebulizer 2.5 mg given. Given by the respiratory therapist. Allergies verified and confirmed 5 rights. --04:55 Adela Lindsey R.NBean 04:53 10/04/2016 SOLU-MEDROL (MethylPREDNISolone Sodium Succ) IVP 125 mg given over 2 minute(s) via site #1. Allergies verified and confirmed 5 rights. IV patency established. IV site checked: no pain, redness, or swelling. IV flushed thoroughly pre- and post-medication administration. IVP given by RN. --04:56 Adela Lindsey R.NBean 05:05. Checked patient name and birthdate: patient confirmed. Clean catch urine collected; sample sent to lab. Specimen labeled in the presence of the patient. --05:13 Gina Ontiveros ER Tech1 05:17 10/04/2016 Site #2 started via IV in the right antecubital space with an 18g angiocath, with aseptic technique and good blood return; one attempt. Saline lock flushed with 10 mL saline. --05:19 Adela Lindsey R.NBean 05:19 10/04/16. BP: 160/71. HR: 90. RR: 24. O2 saturation: 92%. Pain level now 0/10. --05:19 Adela Lindsey R.NBean 05:19 10/04/16. Cardiac rhythm: normal sinus rhythm. The patient reports no complaints and she is calm. Overall patient status is improved- she states feels better. --05:19 Adela Lindsey R.NBean 05:27. Patient transported to CT by stretcher with tech. --05:28 Gina Ontiveros ER Tech1 05:29 10/04/16. Patient transported to CT by stretcher with tech. --05:29 Adela Lindsey R.NBean 05:42. Patient returned from CT by stretcher with tech. --05:42 McQuoid, Gina, ER Tech1 05:44 10/04/16. BP: 156/70. HR: 91. RR: 22. O2 saturation: 93%. Pain level now 0/10. --05:48 Adela Lindsey R.NBean 05:44 10/04/16. Cardiac rhythm: normal sinus rhythm. The patient reports no complaints and she is calm and resting quietly. Overall patient status is improved- she states feels better. ( still has wheezing but improved). Patient returned from CT by stretcher with O2 and tech. --05:48 Adela Lindsey R.NBean 05:45 10/04/2016 Azithromycin PO Tablets 500 mg given. Allergies verified and confirmed 5 rights. --05:47 Adela Lindsey R.NBean 05:46 10/04/2016 Lovenox (Enoxaparin Sodium) Subcutaneous 60 mg given. Given in the left abdomen. Allergies verified and confirmed 5 rights. --05:47 Adela Lindsey R.N. DISPOSITION / DISCHARGE 05:53 10/04/2016 Site #[address] upon admission; patent. --05:53 Adela Lindsey R.NBean 05:53 10/04/2016 IV Fluids IV NS Continued: at the rate of 250 mL/hr. 600 mL remaining bag #1. IV patency established. IV site checked: no pain, redness, or swelling. IV flushed thoroughly. --05:53 Adela Lindsey R.NBean 05:54 10/04/2016 Site #[address] upon admission; patent. --05:54 Adela Lindsey R.NBean 05:54 10/04/16. Cardiac rhythm: normal sinus rhythm. Condition at departure: improved and stable. The goals identified in the patient's plan of care were met. Admitted to Acute Care. Transported via stretcher by tech with IV and O2. Report was given to a nurse via a phone call. Report included patient's care, treatment, medications, reviewed medication reconcilliation, and condition (including any recent changes or anticipated changes). All questions were answered. (to MARLY Valencia). --05:54 Adela Lindsey R.N. 05:47 10/04/16. BP: 156/70. HR: 91. RR: 22. O2 saturation: 93%. Pain level now 0/10. 05:19 10/04/16. BP: 160/71. HR: 90. RR: 24. O2 saturation: 92%. Pain level now 0/10. 04:55 10/04/16. BP: 137/71. HR: 80. RR: 24. O2 saturation: 93%. Pain level now: 0/10. 04:21 10/04/16. BP: 154/73. HR: 86. RR: 24. O2 saturation: 90%. Temp: 97.7 F. Pain level now 0/10. --05:54 Adela Lindsey R.N. 05:55 10/04/16. ( MD at bedside to review all finding and plan of admission). --05:55 Adela Lindsey R.N. Locked/Released at 10/08/2016 20:56 by Adela Lindsey R.N.
--- NOTE | 2016-10-04 05:25 | ED ORDER SUMMARY ---
..... Patient: YOBANY ELAINE OrderSheet [facility] VisitID: [id number] [address] [place] [address] 81y, F Registration Date/Time: 10/04/2016 ORDER SHEET Weight: 61.2 kg (stated) Allergies: No Known Drug Allergy GENERAL ORDERS: Chest 1V Urgent (04:35 10/04/2016 PHutchinson DO) (Ack 4:37 AMcQuoid ER Tech1) (4:45 AMcQuoid ER Tech1) Supervisor Cutting Department (Continuous) (04:35 10/04/2016 PHutchinson DO) (Ack 4:37 AMcQuoid ER Tech1) (4:38 EInderbitzen R.N.) (4:38 AMcQuoid ER Tech1) UA-Culture if indicated Urgent (04:36 10/04/2016 PHutchinson DO) (Ack 4:37 AMcQuoid ER Tech1) (5:13 AMcQuoid ER Tech1) Cardiac Panel Stat (04:36 10/04/2016 PHutchinson DO) (Ack 4:37 AMcQuoid ER Tech1) (4:38 AMcQuoid ER Tech1) BNP Urgent (04:36 10/04/2016 PHutchinson DO) (Ack 4:37 AMcQuoid ER Tech1) (4:38 AMcQuoid ER Tech1) D-Dimer Urgent (04:36 10/04/2016 PHutchinson DO) (Ack 4:37 AMcQuoid ER Tech1) (4:38 AMcQuoid ER Tech1) Amylase Urgent (04:36 10/04/2016 PHutchinson DO) (Ack 4:37 AMcQuoid ER Tech1) (4:38 AMcQuoid ER Tech1) PT with INR Urgent (04:36 10/04/2016 PHutchinson DO) (Ack 4:37 AMcQuoid ER Tech1) (4:38 AMcQuoid ER Tech1) TSH Urgent (04:36 10/04/2016 PHutchinson DO) (Ack 4:37 AMcQuoid ER Tech1) (4:38 AMcQuoid ER Tech1) Oxygen (2 L/min) (NC) (04:36 10/04/2016 [facility]) (Ack 4:37 AMcQuoid ER Tech1) (4:38 EInderbitzen R.N.) (4:38 AMcQuoid ER Tech1) Pulse oximeter (04:36 10/04/2016 [facility]) (Ack 4:37 AMcQuoid ER Tech1) (4:38 EInderbitzen R.N.) (4:38 AMcQuoid ER Tech1) EKG - ER Stat (04:36 10/04/2016 [facility]) (Ack 4:37 AMcQuoid ER Tech1) (4:38 EInderbitzen R.N.) (4:38 AMcQuoid ER Tech1) Vitals (04:36 10/04/2016 [facility]) (Ack 4:37 AMcQuoid ER Tech1) (4:38 EInderbitzen R.N.) (4:38 AMcQuoid ER Tech1) Old Records (prmce) (04:47 10/04/2016 [facility]) (4:48 AMcQuoid ER Tech1) CTA Thorax w Cont (No) (N/A) (elevated d-dimer) Urgent (05:05 10/04/2016 [facility]) (Ack 5:07 AMcQuoid ER Tech1) (5:49 Susanne) Lipase Urgent (05:51 10/04/2016 [facility]) (5:55 AMcQuoid ER Tech1) MEDICATION ORDERS: Albuterol Neb Tx 2 unit doses (NOW, HHN) (04:47 10/04/2016 [facility]) (Ack 4:49 EInderbitzen R.N.) (4:55 EInderbitzen R.N.) Lovenox Subcut 60 mg (NOW) (05:25 10/04/2016 [facility]) (Ack 5:28 EInderbitzen R.N.) (5:47 EInderbitzen R.N.) Azithromycin PO 500 mg (NOW) (05:35 10/04/2016 [facility]) (Ack 5:39 EInderbitzen R.N.) (5:47 EInderbitzen R.N.) IV FLUIDS: IV NS : initial bolus 250 mL (1000 mL/hr), then 250 mL/hr for X3 (NOW) (04:35 10/04/2016 Fannie HERNANDEZ) (Ack 4:39 EInderbittiffany R.N.) (4:50 EInderbitzen R.N.) Solu-MEDROL IV 125 mg (NOW) (04:48 10/04/2016 hansel HERNANDEZ) (Ack 4:49 EInderbitzen R.N.) (4:56 EIndpapito R.N.) ORDER SHEET NOTES: [Electronically signed by Vinayak Gu DO (06:40 10/04/2016)] [Electronically signed by Adela Lindsey R.N. (20:56 10/08/2016)] [Electronically locked/signed by Adela Lindsey R.N. (20:56 10/08/2016)]
--- NOTE | 2016-10-04 06:30 | NUR ---
ADMITTED FROM ED PER JEFF ACCOMPANIED BY STAFF, O2 @ 2L PER NC. ALERT AND ORIENTED DENIES ANY DISCOMFORT, ABLE TO AMBULATE TO TOILET WITH SBA GAIT STEADY.
--- NOTE | 2016-10-04 06:31 | DIAGNOSTIC IMAGING REPORT ---
PROCEDURE: CTA THORAX WITH CONTRAST INDICATION: Shortness of breath. Elevated D-dimer. History of recent pneumonia. TECHNIQUE: 90 ml of Isovue 370 was injected intravenously and axial images were obtained of the entire thorax with 3D sagittal and coronal MIP reconstructions. COMPARISON: Comparison is made to chest x-ray earlier today (10/04/2016). FINDINGS: Pulmonary vessels are normal and there is no evidence of pulmonary embolus. There are mild interstitial changes at the right lung base. Findings are associated with moderate bronchial wall thickening. There is a 7 mm nodular density right anterior mid lung (image [id number]). There is mild parenchymal scarring in the left anterior and right lateral mid lungs. Heart is of normal size. There are marked calcified atheromatous changes of the aorta and great vessels tortuous descending thoracic aorta and replaced right subclavian artery (normal variant). There are marked degenerative changes of the thoracic spine with accentuation of the thoracic kyphosis. IMPRESSION: 1. No evidence of pulmonary embolus. 2. Mild interstitial change at the right lung base with moderate bronchial wall thickening. Consider bronchopneumonia or resolving pneumonia. 3. There is a 7 mm nodular density in the right anterior mid lung which is most likely postinflammatory, although a neoplastic nodule should be considered. Comparison with prior outside studies may be of assistance in evaluating. If these are unavailable, repeat noncontrast CT in 6 weeks is recommended. 4. Marked calcified atheromatous changes of the aorta and great vessels. 5. Findings discussed with Dr. Gu. All CT scans at this facility use dose modulation, iterative reconstruction, and/or weight-based dosing when appropriate to reduce radiation dose to as low as reasonably achievable.
[2016-10-04 06:32] VITALS: BP 148/76
--- NOTE | 2016-10-04 06:32 | DIAGNOSTIC IMAGING REPORT ---
PROCEDURE: XR CHEST 1 VIEW INDICATION: SHORTNESS OF BREATH TECHNIQUE: Portable AP view (0445 hours). COMPARISON: None. FINDINGS: Allowing for overlying wires and electrodes, there are minor interstitial changes at the lung bases. Lungs are otherwise clear. Heart and mediastinum are normal. Tortuous descending aorta. Thorax is normal. IMPRESSION: 1. Negative chest.
[2016-10-04] MEDS ORDERED: LEVO-T25 MCG PO (08:12)
--- NOTE | 2016-10-04 09:20 | History & Physical Report ---
Admission Admit Date Patient Name: Larisa Tipton Admission Date: 10/04/16 Primary Care Provider: Dr Ji Attending Physician: Sandor Reno MD Admitting Physician: Sandor Reno MD 10/04/16 Information Source Information Source: Self Reliability: Good History Chief Complaint shortness of breath History of Present Illness Patient is an 81 year old female with a pmh of hypertension, hypothyroidism, and copd that is presenting with a one day history of shortness of breath. Patient had been in her usual state of health when she noticed that her breathing had become more labored and that she was using acessory muscle to breath. Patient attmempted to use her medications but that littel to no effect on the patients breathing. Patient became alarmed that something else was occuring given her recent bout of upper respiratory infection and she decided to come to the hospital. Patient History 1. COPD exacerbation 2. Hypothyroidism 3. Hypertension Social History Patient is a retiree who currently lives alone and manages her own ADLs. Patient has a history of smoking for the past 57 years where she averages 28 pack years. Patient drinks socially and does not use any illicit substances. Patient hasb been up to date on all her health maintenance visits including colonoscopy, mammogram, cholesterol monitoring, and hearing and vision. Family History Family history was reviewed; no changes noted. Medications and Allergies Medications Home Medications atorvastatin 20 mg daily Combivent 2 puffs daily Amlodopine 10 mg dialy atenolol 20 mg daily citalopram 20 mg daily lisinopril 20 mg daily levothyroxine 25 mcg daily Current Medications Sig/Julian Start time Last Medication Dose Route Stop Time Status Admin Aspirin 81 MG DAILY 10/05 0900 AC PO Azithromycin 250 MG 0700 10/05 0700 AC PO Methylprednisolone 60 MG BID 10/04 2100 AC Sodium Succinate IV Atorvastatin Calcium 20 MG QPM 10/04 1800 AC 10/04 PO 1740 Albuterol/Ipratropium 3 ML RTQ4H PRN 10/04 1400 AC IN Amlodipine Besylate 10 MG DAILY 10/04 1400 AC 10/04 PO 1457 Atenolol 100 MG DAILY 10/04 1400 AC 10/04 PO 1457 Citalopram 20 MG DAILY 10/04 1400 AC 10/04 Hydrobromide PO 1457 Lisinopril 20 MG DAILY 10/04 1400 AC 10/04 PO 1457 Levothyroxine Sodium 25 MCG DAILY@0600 10/04 1000 AC 10/04 PO 1019 Acetaminophen 650 MG Q6H PRN 10/04 0930 AC PO Ondansetron HCl 4 MG Q4H PRN 10/04 0545 AC IV Allergies Coded Allergies: NKA (10/04/16) Review of Systems Constitutional Denies: Fever, Chills, Sweats, Weakness, Malaise, Other. Eyes Denies: Pain, Vision Change, Conjunctival Inflammation, Eyelid Inflammation, Redness, Other. ENT Denies: Ear Pain, Ear Discharge, Nose Pain, Nasal Discharge, Nasal Congestion, Mouth Pain, Mouth Swelling, Throat Pain, Throat Swelling, Other. Respiratory SOB w/exertion, Wheezing. Denies: Cough, Dry, Hemoptysis, Pleuritic Pain, Sputum, Other. Cardiovascular Denies: Chest Pain, Palpitations, Orthopnea, PND, Edema, Light-headedness, Other. Gastrointestinal Denies: Nausea, Vomiting, Abdominal Pain, Diarrhea, Constipation, Melena, Hematochezia, Other. Genitourinary Denies: Dysuria, Frequency, Incontinence, Hematuria, Retention, Other. Musculoskeletal Denies: Neck Pain, Shoulder Pain, Arm Pain, Back Pain, Hand Pain, Leg Pain, Foot Pain, Other. Skin Denies: Rash, Lesions, Jaundice, Bruising, Other. Neurological Denies: Weakness, Numbness, Incoordination, Change in speech, Confusion, Seizures, Other. Physical Exam Vital Signs / I&Os Vital Signs Date Time Temp Pulse Resp B/P Pulse O2 O2 Flow FiO2 Ox Delivery Rate 10/04 1548 1.0 10/04 1457 84 10/04 1431 98.1 106 20 165/96 96 Room Air 10/04 1038 99.0 92 18 141/71 92 Room Air 10/04 0848 Nasal 2.0 Cannula 10/04 0801 1.0 10/04 0632 97.7 91 16 148/76 92 Nasal 2.0 Cannula 10/04 0504 3.0 10/04 0444 3.0 General Appearance Alert, Oriented X3, No acute distress HEENT Atraumatic, PERRLA, Moist mucous membranes Lungs - basilar ronchi otherwise no wheezing noted Neck Supple, No JVD, No masses, No lymphadenopathy Cardiovascular Regular rate and rhythm, Normal S1 and S2, No murmurs, gallops, rubs Abdomen Soft, No tenderness Extremities No edema, Normal pulses, No tenderness, Strength = upper ext's, Strength = lower ext's Skin No Breakdown Neurological Normal gait, Normal speech, Sensation intact, Cranial nerves intact , Strength 5/5 x4 ext's, No lateralizing signs Psych/Mental Status Mental status normal LAB Results Laboratory Tests 10/04 10/04 10/04 0430 0430 0430 Chemistry Plasma Sodium (136 - 145 mmol/L) 137 Plasma Potassium (3.5 - 5.1 mmol/L) 4.0 Plasma Chloride (98 - 107 mmol/L) 102 CO2 (Enzymatic) (21 - 32 mmol/L) 27 BUN (7 - 18 mg/dL) 11 Creatinine (0.6 - 1.3 mg/dL) 0.7 Est GFR ( Amer) (mL/min) >60 Est GFR (Non-Af Amer) (mL/min) >60 Glucose (70 - 110 mg/dL) 170 Plasma Calcium (8.5 - 10.1 mg/dL) 9.1 Plasma Magnesium (1.8 - 2.4 mg/dL) 1.8 Total Bilirubin (0.0 - 1.0 mg/dL) 0.7 AST (15 - 37 U/L) 21 ALT (12 - 78 U/L) 28 Alkaline Phosphatase (46 - 116 U/L) 71 Creatine Kinase (24 - 260 U/L) 49 Troponin (0.00 - 1.5 ng/mL) <0.05 B-Natriuretic Peptide (5 - 100 pg/ml) 30.9 Total Protein (6.4 - 8.2 g/dL) 7.1 Albumin (3.3 - 5.0 g/dL) 3.8 Amylase (25 - 115 U/L) 116 TSH 3rd Generation (0.30 - 3.74 uIU/mL) 7.170 Coagulation INR (0.8 - 1.2) 1.0 D-Dimer, Quantitative (0.27 - 0.52 ug/mLFEU) 2.74 Hematology WBC (4.5 - 11.5 K/uL) 6.7 RBC (4.00 - 5.20 M/uL) 4.85 Hgb (12.0 - 16.0 gm/dL) 15.5 Hct (36.0 - 46.0 %) 45.4 MCV (80 - 100 fL) 94 MCH (26 - 34 pg) 32 RDW (11.6 - 14.8 %) 13.4 Neut % (Auto) (50 - 75 %) 50.3 Lymph % (Auto) (25 - 40 %) 32.4 [place] % (Auto) (3 - 14 %) 6.2 Eos % (Auto) (0 - 4 %) 10.7 Baso % (Auto) (0 - 2 %) 0.4 Plt Count, EDTA (150 - 400 K/uL) 168 PUBS MCHC (31 - 37 g/dL) 34 10/04 10/04 0505 0530 Chemistry Lipase (73 - 393 U/L) 594 Urines Urine Color YELLOW Urine Appearance CLEAR Urine pH (5.0 - 8.0) 7.5 Ur Specific [place] (1.010 - 1.030) 1.020 Urine Protein (NEGATIVE) 2+ Urine Ketones (NEGATIVE) NEGATIVE Urine Blood (NEGATIVE) TRACE-INTACT Urine Nitrite (NEGATIVE) NEGATIVE Urine Bilirubin (NEGATIVE) NEGATIVE Urine Urobilinogen (0.2 - 1.0 EU/dL) 0.2 Ur Leukocyte Esterase (NEGATIVE) NEGATIVE Urine RBC (0 - 1 rbc/hpf) 0-1 Urine WBC (0 - 1 wbc/hpf) RARE Ur Epithelial Cells (0 - 5 EPI/hpf) NONE SEEN Urine Bacteria (NONE SEEN) NONE SEEN Urine Glucose (NEGATIVE) NEGATIVE Urine Comment CULT NOT INDICATED Assessment and Plan Problem List 1. COPD exacerbation Plan - Pt has evidence of copd exacerbation - pt has poor air exchange initially which improved with steroids and around the clock duoneb treatments - will continue the aforementioned - on repeat exam patient was much more improved than before - bar any decompensation patient can be discharged tomorrow 2. Hypothyroidism Plan - Pt was seen to have a moderately elevated TSH - pt is a known hypothyroid patient who admits to being without her medication for 3 weeks - will resume home dose of synthroid - will obtain am tsh level 3. Hypertension Plan - Pt on multiple agents for blood pressure - will continue all the medications and monitor the patients blood pressure - will monitor trend
[2016-10-04 10:38] VITALS: BP 141/71
[2016-10-04 14:31] VITALS: BP 165/96
--- NOTE | 2016-10-04 16:59 | NUR ---
PT IS HAPPILY SITTING UP IN BED AND RESTING, DENIES SOB OR RESPIRATORY ISSUES. AUSCULTATED EXPIRATORY WHEEZING AND PT STATES NOT FEELING WHEEZY. NO NAUSE, CP. CARDIAC SOUNDS ARE DIMINISHED AND VERY DIFFICULT TO HEAR. TELE READING NSR. HEART RATE IN 80'S. ALL IV SITES PATENT AND WITHOUT ISSUE. CALL LIGHT WITH PT, BED LOW AND LOCKED. WCTM.
[2016-10-04 18:56] VITALS: BP 128/74
--- NOTE | 2016-10-04 21:07 | NUR ---
Asked pt to ambulate in hallway 4 loops, stated feeling of wheezing until gate was slowed down. Enjoyed walking. wctm.
[2016-10-04 22:20] VITALS: BP 126/74
--- NOTE | 2016-10-05 00:25 | NUR ---
RESTING IN BED, O2 @ 2L PER NC. HR 83 REGULAR, TELE SINUS RHYTHM. DENIES ANY DISCOMFORT.
[2016-10-05 03:13] VITALS: BP 140/76
--- NOTE | 2016-10-05 03:24 | NUR ---
AMBULATING FROM TOILET GAIT STEADY, DENIES SHORTNESS OF BREATH.
[2016-10-05 06:52] VITALS: BP 132/76
--- NOTE | 2016-10-05 07:30 | Progress Note ---
Subjective General Note Date: October 05, 2016 Admission Date: October 04, 2016 Hospital Day: 2 PCP: Tyesha Ji D.O. Status: Observation Advanced Directive: Full Code Room: 205 Brief History: The patient is an 81-year-old white female with a significant past medical history of COPD, hypothyroidism, hypertension who presented to [facility] emergency department on the day of admission secondary to complaints of shortness of breath. [facility] ER evaluation was consistent with exacerbation of COPD. Secondary to the above the patient was admitted by Sandor Reno M.D. for further evaluation and treatment. For other history present illness, past medical history, family history, social history, review of systems, and admission physical examination please see the patient's history and physical examination and ER visit note in the patient's medical record. Subjective: The patient states she is doing well. Shortness of breath at baseline. Ready for discharge. Patient requests: None Medications and Allergies Medications Current Medications Sig/Julian Start time Last Medication Dose Route Stop Time Status Admin Aspirin 81 MG DAILY 10/05 0900 AC PO Azithromycin 250 MG 0700 10/05 0700 AC 10/05 PO 0608 Methylprednisolone 60 MG BID 10/04 2100 AC 10/04 Sodium Succinate IV 205 Atorvastatin Calcium 20 MG QPM 10/04 1800 AC 10/04 PO 1740 Albuterol/Ipratropium 3 ML RTQ4H PRN 10/04 1400 AC IN Amlodipine Besylate 10 MG DAILY 10/04 1400 AC 10/04 PO 1457 Atenolol 100 MG DAILY 10/04 1400 AC 10/04 PO 1457 Citalopram 20 MG DAILY 10/04 1400 AC 10/04 Hydrobromide PO 1457 Lisinopril 20 MG DAILY 10/04 1400 AC 10/04 PO 1457 Levothyroxine Sodium 25 MCG DAILY@0600 10/04 1000 AC 10/05 PO 0608 Acetaminophen 650 MG Q6H PRN 10/04 0930 AC PO Ondansetron HCl 4 MG Q4H PRN 10/04 0545 AC IV Allergies Coded Allergies: NKA (10/04/16) Physical Exam Vital Signs / I&Os Vital Signs Date Time Temp Pulse Resp B/P Pulse O2 O2 Flow FiO2 Ox Delivery Rate 10/05 0652 97.7 93 21 132/76 93 Nasal 2.0 Cannula 10/05 0313 98.6 86 17 140/76 93 Nasal 2.0 Cannula 10/05 0028 Nasal 2.0 Cannula 10/04 2221 2.0 10/04 2220 98.1 83 17 126/74 94 Room Air 1.5 10/04 1856 98.1 87 20 128/74 90 10/04 1548 1.0 10/04 1457 84 10/04 1431 98.1 106 20 165/96 96 Room Air 10/04 1038 99.0 92 18 141/71 92 Room Air 10/04 0848 Nasal 2.0 Cannula 10/04 0801 1.0 I&O 10/05 0000 10/04 1600 10/04 0800 Intake Total 690 570 Output Total 1000 350 250 Balance -310 220 -250 General Appearance Alert, Oriented X3, Cooperative, No acute distress Lungs Clear to auscultation, No wheezes or rhonchi noted. Cardiovascular Regular rate and rhythm, Normal S1 and S2, No murmurs, gallops, rubs Abdomen Normal bowel sounds, Soft, No tenderness Extremities No cyanosis, No clubbing Neurological Grossly normal. Psych/Mental Status Mental status normal, Mood normal LAB Results Laboratory Tests 10/05 522 Chemistry Plasma Sodium (136 - 145 mmol/L) 137 Plasma Potassium (3.5 - 5.1 mmol/L) 4.1 Plasma Chloride (98 - 107 mmol/L) 101 CO2 (Enzymatic) (21 - 32 mmol/L) 23 BUN (7 - 18 mg/dL) 17 Creatinine (0.6 - 1.3 mg/dL) 0.8 Est GFR ( Amer) (mL/min) >60 Est GFR (Non-Af Amer) (mL/min) >60 Glucose (70 - 110 mg/dL) 166 Plasma Calcium (8.5 - 10.1 mg/dL) 9.6 Plasma Magnesium (1.8 - 2.4 mg/dL) 1.9 Total Bilirubin (0.0 - 1.0 mg/dL) 1.2 AST (15 - 37 U/L) 20 ALT (12 - 78 U/L) 23 Alkaline Phosphatase (46 - 116 U/L) 69 Total Protein (6.4 - 8.2 g/dL) 7.0 Albumin (3.3 - 5.0 g/dL) 3.6 Hematology WBC (4.5 - 11.5 K/uL) 14.9 RBC (4.00 - 5.20 M/uL) 4.57 Hgb (12.0 - 16.0 gm/dL) 14.3 Hct (36.0 - 46.0 %) 43.0 MCV (80 - 100 fL) 94 MCH (26 - 34 pg) 31 RDW (11.6 - 14.8 %) 13.4 Neut % (Auto) (50 - 75 %) 85.9 Lymph % (Auto) (25 - 40 %) 11.3 [place] % (Auto) (3 - 14 %) 2.8 Eos % (Auto) (0 - 4 %) 0 Baso % (Auto) (0 - 2 %) 0 Plt Count, EDTA (150 - 400 K/uL) 198 PUBS MCHC (31 - 37 g/dL) 33 Imaging CTA Scan Chest IMPRESSION: 1. No evidence of pulmonary embolus. 2. Mild interstitial change at the right lung base with moderate bronchial wall thickening. Consider bronchopneumonia or resolving pneumonia. 3. There is a 7 mm nodular density in the right anterior mid lung which is most likely postinflammatory, although a neoplastic nodule should be considered. Comparison with prior outside studies may be of assistance in evaluating. If these are unavailable, repeat noncontrast CT in 6 weeks is recommended. 4. Marked calcified atheromatous changes of the aorta and great vessels. 5. Findings discussed with Dr. Gu. Dictated by: CASSIE COTTRELL MD D: SIENA;10/04/16 0631 Assessment and Plan Problem List 1. COPD exacerbation Plan -Patient presents with findings of exacerbation of COPD -Patient status much improved. -No supplemental O2 requirement -Patient ambulating without problems -Discharge on DuoNeb, albuterol, tapered corticosteroids -Follow-up with [facility] next week 2. Hypothyroidism Plan -Patient with history of hypothyroidism. -TSH elevated -Patient not recently taking thyroid supplementation -Patient placed back on her outpatient thyroid dosage of Synthroid 0.025 mg by mouth daily -[facility] 4 weeks with adjustment in therapy as necessary in thyroid supplementation 3. Pulmonary nodule, right Status Acute Onset Date Unknown Plan -The patient has findings of pulmonary nodule on admission CTA of the thorax -Patient will follow-up for outpatient noncontrast CT as recommended by radiology in 6 weeks -Patient given instructions to make sure that her physician schedules outpatient CT scan as follow-up 4. Hyperglycemia Status Acute Onset Date Unknown Plan -The patient was noted to have mild elevation of glucose on admission. -Follow-up hemoglobin A1c mildly elevated at 6.4% -Outpatient follow-up with PCP when off corticosteroids for determination of possible need for oral hypoglycemic in treatment of hyperglycemia/diabetes mellitus -Patient to follow-up with [facility] next week 5. 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 -Outpatient follow-up with [facility] next week 6. Elevated amylase and lipase Status Acute Onset Date Unknown Plan -Patient presented with findings of elevation of amylase and lipase -These elevations were mild. -The patient had no abdominal pain recently. -Outpatient follow-up with [facility]-consider abdominal ultrasound/CT scan. -Amylase and lipase checked prior to discharge and noted to be within normal limits. 7. Bronchitis Status Acute Onset Date Unknown Plan -Patient presented with findings suggestive of bronchitis -Patient afebrile -Pulmonary status much improved -Complete a full course of Zithromax post discharge -Outpatient follow-up with [facility] next week 8. Hypertension Plan -Well-controlled -Continue present therapy -Low-salt diet -Outpatient follow-up with [facility] Current status: Good, improved Anticipated discharge date: Today Anticipated discharge placement: Home Patient care time: Time spent in chart review, patient interview, physical exam, CPOE, and care documentation: Greater than 30 minutes Visit to patient today: 1 Complexity of care: Moderate For other recommendations regarding discharge diet, activity, followup, and discharge medications please see the patient's discharge instructions. Greater than 30 min. was spent in the patient's discharge preparation including discharge interview and physical examination, progress note, discharge instructions, and discharge summary E&M Codes Discharge: Inpt >30 min spent/[id number]
--- NOTE | 2016-10-05 07:30 | Progress Note ---
Subjective General Note Date: October 05, 2016 Admission Date: October 04, 2016 Hospital Day: 2 PCP: Tyesha Ji D.O. Status: Observation Advanced Directive: Full Code Room: 205 Brief History: The patient is an 81-year-old white female with a significant past medical history of COPD, hypothyroidism, hypertension who presented to [facility] emergency department on the day of admission secondary to complaints of shortness of breath. [facility] ER evaluation was consistent with exacerbation of COPD. Secondary to the above the patient was admitted by Sandor Reno M.D. for further evaluation and treatment. For other history present illness, past medical history, family history, social history, review of systems, and admission physical examination please see the patient's history and physical examination and ER visit note in the patient's medical record. Subjective: The patient states she is doing well. Shortness of breath at baseline. Ready for discharge. Patient requests: None Medications and Allergies Medications Current Medications Sig/Julian Start time Last Medication Dose Route Stop Time Status Admin Aspirin 81 MG DAILY 10/05 0900 AC PO Azithromycin 250 MG 0700 10/05 0700 AC 10/05 PO 0608 Methylprednisolone 60 MG BID 10/04 2100 AC 10/04 Sodium Succinate IV 205 Atorvastatin Calcium 20 MG QPM 10/04 1800 AC 10/04 PO 1740 Albuterol/Ipratropium 3 ML RTQ4H PRN 10/04 1400 AC IN Amlodipine Besylate 10 MG DAILY 10/04 1400 AC 10/04 PO 1457 Atenolol 100 MG DAILY 10/04 1400 AC 10/04 PO 1457 Citalopram 20 MG DAILY 10/04 1400 AC 10/04 Hydrobromide PO 1457 Lisinopril 20 MG DAILY 10/04 1400 AC 10/04 PO 1457 Levothyroxine Sodium 25 MCG DAILY@0600 10/04 1000 AC 10/05 PO 0608 Acetaminophen 650 MG Q6H PRN 10/04 0930 AC PO Ondansetron HCl 4 MG Q4H PRN 10/04 0545 AC IV Allergies Coded Allergies: NKA (10/04/16) Physical Exam Vital Signs / I&Os Vital Signs Date Time Temp Pulse Resp B/P Pulse O2 O2 Flow FiO2 Ox Delivery Rate 10/05 0652 97.7 93 21 132/76 93 Nasal 2.0 Cannula 10/05 0313 98.6 86 17 140/76 93 Nasal 2.0 Cannula 10/05 0028 Nasal 2.0 Cannula 10/04 2221 2.0 10/04 2220 98.1 83 17 126/74 94 Room Air 1.5 10/04 1856 98.1 87 20 128/74 90 10/04 1548 1.0 10/04 1457 84 10/04 1431 98.1 106 20 165/96 96 Room Air 10/04 1038 99.0 92 18 141/71 92 Room Air 10/04 0848 Nasal 2.0 Cannula 10/04 0801 1.0 I&O 10/05 0000 10/04 1600 10/04 0800 Intake Total 690 570 Output Total 1000 350 250 Balance -310 220 -250 General Appearance Alert, Oriented X3, Cooperative, No acute distress Lungs Clear to auscultation, No wheezes or rhonchi noted. Cardiovascular Regular rate and rhythm, Normal S1 and S2, No murmurs, gallops, rubs Abdomen Normal bowel sounds, Soft, No tenderness Extremities No cyanosis, No clubbing Neurological Grossly normal. Psych/Mental Status Mental status normal, Mood normal LAB Results Laboratory Tests 10/05 522 Chemistry Plasma Sodium (136 - 145 mmol/L) 137 Plasma Potassium (3.5 - 5.1 mmol/L) 4.1 Plasma Chloride (98 - 107 mmol/L) 101 CO2 (Enzymatic) (21 - 32 mmol/L) 23 BUN (7 - 18 mg/dL) 17 Creatinine (0.6 - 1.3 mg/dL) 0.8 Est GFR ( Amer) (mL/min) >60 Est GFR (Non-Af Amer) (mL/min) >60 Glucose (70 - 110 mg/dL) 166 Plasma Calcium (8.5 - 10.1 mg/dL) 9.6 Plasma Magnesium (1.8 - 2.4 mg/dL) 1.9 Total Bilirubin (0.0 - 1.0 mg/dL) 1.2 AST (15 - 37 U/L) 20 ALT (12 - 78 U/L) 23 Alkaline Phosphatase (46 - 116 U/L) 69 Total Protein (6.4 - 8.2 g/dL) 7.0 Albumin (3.3 - 5.0 g/dL) 3.6 Hematology WBC (4.5 - 11.5 K/uL) 14.9 RBC (4.00 - 5.20 M/uL) 4.57 Hgb (12.0 - 16.0 gm/dL) 14.3 Hct (36.0 - 46.0 %) 43.0 MCV (80 - 100 fL) 94 MCH (26 - 34 pg) 31 RDW (11.6 - 14.8 %) 13.4 Neut % (Auto) (50 - 75 %) 85.9 Lymph % (Auto) (25 - 40 %) 11.3 [place] % (Auto) (3 - 14 %) 2.8 Eos % (Auto) (0 - 4 %) 0 Baso % (Auto) (0 - 2 %) 0 Plt Count, EDTA (150 - 400 K/uL) 198 PUBS MCHC (31 - 37 g/dL) 33 Imaging CTA Scan Chest IMPRESSION: 1. No evidence of pulmonary embolus. 2. Mild interstitial change at the right lung base with moderate bronchial wall thickening. Consider bronchopneumonia or resolving pneumonia. 3. There is a 7 mm nodular density in the right anterior mid lung which is most likely postinflammatory, although a neoplastic nodule should be considered. Comparison with prior outside studies may be of assistance in evaluating. If these are unavailable, repeat noncontrast CT in 6 weeks is recommended. 4. Marked calcified atheromatous changes of the aorta and great vessels. 5. Findings discussed with Dr. Gu. Dictated by: CASSIE COTTRELL MD D: SIENA;10/04/16 0631 Assessment and Plan Problem List 1. COPD exacerbation Plan -Patient presents with findings of exacerbation of COPD -Patient status much improved. -No supplemental O2 requirement -Patient ambulating without problems -Discharge on DuoNeb, albuterol, tapered corticosteroids -Follow-up with [facility] next week 2. Hypothyroidism Plan -Patient with history of hypothyroidism. -TSH elevated -Patient not recently taking thyroid supplementation -Patient placed back on her outpatient thyroid dosage of Synthroid 0.025 mg by mouth daily -[facility] 4 weeks with adjustment in therapy as necessary in thyroid supplementation 3. Pulmonary nodule, right Status Acute Onset Date Unknown Plan -The patient has findings of pulmonary nodule on admission CTA of the thorax -Patient will follow-up for outpatient noncontrast CT as recommended by radiology in 6 weeks -Patient given instructions to make sure that her physician schedules outpatient CT scan as follow-up 4. Hyperglycemia Status Acute Onset Date Unknown Plan -The patient was noted to have mild elevation of glucose on admission. -Follow-up hemoglobin A1c mildly elevated at 6.4% -Outpatient follow-up with PCP when off corticosteroids for determination of possible need for oral hypoglycemic in treatment of hyperglycemia/diabetes mellitus -Patient to follow-up with [facility] next week 5. 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 -Outpatient follow-up with [facility] next week 6. Elevated amylase and lipase Status Acute Onset Date Unknown Plan -Patient presented with findings of elevation of amylase and lipase -These elevations were mild. -The patient had no abdominal pain recently. -Outpatient follow-up with [facility]-consider abdominal ultrasound/CT scan. -Amylase and lipase checked prior to discharge and noted to be within normal limits. 7. Bronchitis Status Acute Onset Date Unknown Plan -Patient presented with findings suggestive of bronchitis -Patient afebrile -Pulmonary status much improved -Complete a full course of Zithromax post discharge -Outpatient follow-up with [facility] next week 8. Hypertension Plan -Well-controlled -Continue present therapy -Low-salt diet -Outpatient follow-up with [facility] Current status: Good, improved Anticipated discharge date: Today Anticipated discharge placement: Home Patient care time: Time spent in chart review, patient interview, physical exam, CPOE, and care documentation: Greater than 30 minutes Visit to patient today: 1 Complexity of care: Moderate For other recommendations regarding discharge diet, activity, followup, and discharge medications please see the patient's discharge instructions. Greater than 30 min. was spent in the patient's discharge preparation including discharge interview and physical examination, progress note, discharge instructions, and discharge summary E&M Codes Discharge: Inpt >30 min spent/[id number]
--- NOTE | 2016-10-05 07:54 | NUR ---
PATIENT AMBULATORY IN ROOM. LUNGS DIMINISHED T/O. NO SWELLING TO BLE'S. 94% ON RA WHILE AMBULATING IN ROOM AND NO SOB NOTED.
[2016-10-05] MEDS ORDERED: CITALOPRAM HYDR20 MG PO (08:24)
[2016-10-05] MEDS ORDERED: ATENOLOL100 MG PO (08:24)
[2016-10-05] MEDS ORDERED: LISINOPRIL10 MG PO (08:25)
[2016-10-05] MEDS ORDERED: AMLODIPINE BESYL5 MG PO (08:25)
[2016-10-05] MEDS ORDERED: ATORVASTATIN CA10 MG PO (08:26)
[2016-10-05] MEDS ORDERED: ALBUTEROL HFA60 DOSE IN (08:26)
[2016-10-05] MEDS ORDERED: ASPIRIN ADULT L81 MG PO (08:26)
[2016-10-05 10:07] VITALS: BP 110/65
[2016-10-05] MEDS ORDERED: PREDNISONE20 MG PO (10:42)
[2016-10-05] MEDS ORDERED: IPRATROPIUM BROMIDE/ IN (10:42)
--- NOTE | 2016-10-05 10:48 | Provider's Discharge Care Plan ---
Problem, Goal, Plan Problem List 1. COPD exacerbation Goals: Improve disease control, Prevent disease progress Instructions: Follow up as directed, Take meds as directed 2. Hypothyroidism Goals: Improve disease control, Prevent disease progress Instructions: Follow up as directed, Take meds as directed, Have your thyroid function rechecked in 4 weeks with your primary care provider 3. Hypertension Goals: Improve disease control, Prevent disease progress Instructions: Follow up as directed, Take meds as directed, Avoid processed foods, Low salt diet 4. Pulmonary nodule, right Goals: Improve disease control, Prevent disease progress Instructions: Follow up as directed, Recommend repeat CT scan of the chest in 6 weeks as follow-up on a pulmonary nodule noted on CT scan during your hospitalization. It is very important that a follow-up scan be performed. Please make sure your doctor's office schedules this in 6 weeks.
[2016-10-05] MEDS ORDERED: NEBULIZER IN (10:49)
[2016-10-05] MEDS ORDERED: ZITHROMAX500 MG PO (10:56)
--- NOTE | 2016-10-05 10:59 | Discharge Summary ---
Discharge Summary Report Admit Date 10/04/16 Discharge Date 10/05/16 Admission Diagnosis 1. Exacerbation of COPD 2. Hypertension 3. Hyperlipidemia 4. Hypothyroidism Discharge Diagnosis 1. Exacerbation of COPD 2. Hypertension 3. Hyperlipidemia 4. Bronchitis 5. Hypothyroidism 6. Pulmonary nodule 7. Hyperglycemia 8. Elevated lipase/amylase--resolved Brief History The patient is an 81-year-old white female with a significant past medical history of COPD, hypothyroidism, hypertension who presented to [facility] emergency department on the day of admission secondary to complaints of shortness of breath. [facility] ER evaluation was consistent with exacerbation of COPD. Secondary to the above the patient was admitted by Sandor Reno M.D. for further evaluation and treatment. For other history present illness, past medical history, family history, social history, review of systems, and admission physical examination please see the patient's history and physical examination and ER visit note in the patient's medical record. Hospital Course The following problems and their management were noted during the patient's hospitalization: 1. Exacerbation of COPD The patient presented with findings of exacerbation of COPD. She was treated with DuoNeb, albuterol, and IV corticosteroids. Symptoms improved rapidly. On the day of discharge she was up ambulating well without any significant shortness of breath. She had no requirement for supplemental oxygen. She was discharged on DuoNeb, albuterol, and oral corticosteroids. See discharge instructions. She will follow-up with [facility] next week for reevaluation. 2. Hypertension The patient has a long-standing history of hypertension. Blood pressure was well-controlled during her hospital stay. She was discharged on a low-salt diet. The patient was discharged on medications-atenolol 100 mg by mouth daily, Norvasc 5 mg by mouth daily, and lisinopril 10 mg by mouth daily. She will follow-up with her PCP next week for reevaluation. BP on discharge was noted to be 110/65 mmHg . 3. Hyperlipidemia The patient has a history of hyperlipidemia. No changes were undertaken to her outpatient medical regimen. She was discharged on Lipitor 10 mg by mouth daily. The patient was discharged on a low-fat/low-cholesterol diet 4. Bronchitis The patient was admitted with findings of bronchitis. She was treated with Zithromax during her hospital stay. She'll complete a full course of therapy of Zithromax as an outpatient. The patient was discharged on Zithromax 500 mg by mouth daily for 2 days. She was afebrile on discharge. 5. Hypothyroidism The patient has a history of hypothyroidism. She apparently has not taken her thyroid supplementation for the past 3 weeks. TSH was elevated at 7.17 on admission. She is placed back on Synthroid 0.025 mg by mouth daily. She will follow-up with her PCP [facility] Eubanks for repeat thyroid function tests in 1 month. 6. Pulmonary nodule The patient was noted to have findings of thyroid nodule on CTA at the time of admission. It was recommended the patient follow-up for repeat noncontrast CT in approximately 6 weeks. This was emphasized to the patient that this requires follow-up at the time of discharge. She was advised to have her PCP-[facility] schedule follow-up CT scan in 6 weeks as recommended. 7. Hyperglycemia The patient was noted to have mild hyperglycemia during her hospital stay. Blood glucose on discharge was noted to be mildly elevated at 166. The patient was on corticosteroids at the time of discharge. She did have mild elevation of her hemoglobin A1c at 6.4%. She will follow-up with [facility] in a week with consideration of initiation of oral hypoglycemics for persistent hyperglycemia. 8. Elevated lipase/amylase--resolved The patient was noted at the time of admission to have elevation of her amylase and lipase. These were mild elevations not even 2 times the upper limit of normal. These resolved her hospital stay. She had no complaints of abdominal pain. She will follow-up with [facility] next week with consideration of CT/ ultrasound of the abdomen for any abdominal symptomatology post discharge. Lab/Imaging Laboratory Tests 10/05 10/05 10/05 0523 0523 UNK Chemistry Plasma Sodium (136 - 145 mmol/L) 137 Plasma Potassium (3.5 - 5.1 mmol/L) 4.1 Plasma Chloride (98 - 107 mmol/L) 101 CO2 (Enzymatic) (21 - 32 mmol/L) 23 BUN (7 - 18 mg/dL) 17 Creatinine (0.6 - 1.3 mg/dL) 0.8 Est GFR ( Amer) (mL/min) >60 Est GFR (Non-Af Amer) (mL/min) >60 Glucose (70 - 110 mg/dL) 166 Hemoglobin A1c % Pending Plasma Calcium (8.5 - 10.1 mg/dL) 9.6 Plasma Magnesium (1.8 - 2.4 mg/dL) 1.9 Total Bilirubin (0.0 - 1.0 mg/dL) 1.2 AST (15 - 37 U/L) 20 ALT (12 - 78 U/L) 23 Alkaline Phosphatase (46 - 116 U/L) 69 Total Protein (6.4 - 8.2 g/dL) 7.0 Albumin (3.3 - 5.0 g/dL) 3.6 Amylase (25 - 115 U/L) Pending Lipase (73 - 393 U/L) Pending Cancelled Hematology WBC (4.5 - 11.5 K/uL) 14.9 RBC (4.00 - 5.20 M/uL) 4.57 Hgb (12.0 - 16.0 gm/dL) 14.3 Hct (36.0 - 46.0 %) 43.0 MCV (80 - 100 fL) 94 MCH (26 - 34 pg) 31 RDW (11.6 - 14.8 %) 13.4 Neut % (Auto) (50 - 75 %) 85.9 Lymph % (Auto) (25 - 40 %) 11.3 [place] % (Auto) (3 - 14 %) 2.8 Eos % (Auto) (0 - 4 %) 0 Baso % (Auto) (0 - 2 %) 0 Plt Count, EDTA (150 - 400 K/uL) 198 PUBS MCHC (31 - 37 g/dL) 33 CTA Thorax IMPRESSION: 1. No evidence of pulmonary embolus. 2. Mild interstitial change at the right lung base with moderate bronchial wall thickening. Consider bronchopneumonia or resolving pneumonia. 3. There is a 7 mm nodular density in the right anterior mid lung which is most likely postinflammatory, although a neoplastic nodule should be considered. Comparison with prior outside studies may be of assistance in evaluating. If these are unavailable, repeat noncontrast CT in 6 weeks is recommended. 4. Marked calcified atheromatous changes of the aorta and great vessels. 5. Findings discussed with Dr. Gu. All CT scans at this facility use dose modulation, iterative reconstruction, and/or weight-based dosing when appropriate to reduce radiation dose to as low as reasonably achievable. Dictated by: CASSIE COTTRELL MD D: SIENA;10/04/16 0631 Discharge Instructions/Meds For other recommendations regarding discharge diet, activity, followup, and discharge medications please see the patient's discharge instructions. Discharge condition: Good, improved Greater than 30 min. was spent in the patient's discharge preparation including discharge interview and physical examination, progress note, discharge instructions, and discharge summary The patient was interviewed and examined on the day of discharge. E&M Codes Discharge: Observation - All/[id number]
--- NOTE | 2016-10-05 10:59 | Discharge Summary ---
Discharge Summary Report Admit Date 10/04/16 Discharge Date 10/05/16 Admission Diagnosis 1. Exacerbation of COPD 2. Hypertension 3. Hyperlipidemia 4. Hypothyroidism Discharge Diagnosis 1. Exacerbation of COPD 2. Hypertension 3. Hyperlipidemia 4. Bronchitis 5. Hypothyroidism 6. Pulmonary nodule 7. Hyperglycemia 8. Elevated lipase/amylase--resolved Brief History The patient is an 81-year-old white female with a significant past medical history of COPD, hypothyroidism, hypertension who presented to [facility] emergency department on the day of admission secondary to complaints of shortness of breath. [facility] ER evaluation was consistent with exacerbation of COPD. Secondary to the above the patient was admitted by Sandor Reno M.D. for further evaluation and treatment. For other history present illness, past medical history, family history, social history, review of systems, and admission physical examination please see the patient's history and physical examination and ER visit note in the patient's medical record. Hospital Course The following problems and their management were noted during the patient's hospitalization: 1. Exacerbation of COPD The patient presented with findings of exacerbation of COPD. She was treated with DuoNeb, albuterol, and IV corticosteroids. Symptoms improved rapidly. On the day of discharge she was up ambulating well without any significant shortness of breath. She had no requirement for supplemental oxygen. She was discharged on DuoNeb, albuterol, and oral corticosteroids. See discharge instructions. She will follow-up with [facility] next week for reevaluation. 2. Hypertension The patient has a long-standing history of hypertension. Blood pressure was well-controlled during her hospital stay. She was discharged on a low-salt diet. The patient was discharged on medications-atenolol 100 mg by mouth daily, Norvasc 5 mg by mouth daily, and lisinopril 10 mg by mouth daily. She will follow-up with her PCP next week for reevaluation. BP on discharge was noted to be 110/65 mmHg . 3. Hyperlipidemia The patient has a history of hyperlipidemia. No changes were undertaken to her outpatient medical regimen. She was discharged on Lipitor 10 mg by mouth daily. The patient was discharged on a low-fat/low-cholesterol diet 4. Bronchitis The patient was admitted with findings of bronchitis. She was treated with Zithromax during her hospital stay. She'll complete a full course of therapy of Zithromax as an outpatient. The patient was discharged on Zithromax 500 mg by mouth daily for 2 days. She was afebrile on discharge. 5. Hypothyroidism The patient has a history of hypothyroidism. She apparently has not taken her thyroid supplementation for the past 3 weeks. TSH was elevated at 7.17 on admission. She is placed back on Synthroid 0.025 mg by mouth daily. She will follow-up with her PCP [facility] for repeat thyroid function tests in 1 month. 6. Pulmonary nodule The patient was noted to have findings of thyroid nodule on CTA at the time of admission. It was recommended the patient follow-up for repeat noncontrast CT in approximately 6 weeks. This was emphasized to the patient that this requires follow-up at the time of discharge. She was advised to have her PCP-[facility] schedule follow-up CT scan in 6 weeks as recommended. 7. Hyperglycemia The patient was noted to have mild hyperglycemia during her hospital stay. Blood glucose on discharge was noted to be mildly elevated at 166. The patient was on corticosteroids at the time of discharge. She did have mild elevation of her hemoglobin A1c at 6.4%. She will follow-up with [facility] in a week with consideration of initiation of oral hypoglycemics for persistent hyperglycemia. 8. Elevated lipase/amylase--resolved The patient was noted at the time of admission to have elevation of her amylase and lipase. These were mild elevations not even 2 times the upper limit of normal. These resolved her hospital stay. She had no complaints of abdominal pain. She will follow-up with [facility] next week with consideration of CT/ ultrasound of the abdomen for any abdominal symptomatology post discharge. Lab/Imaging Laboratory Tests 10/05 10/05 10/05 0523 0523 UNK Chemistry Plasma Sodium (136 - 145 mmol/L) 137 Plasma Potassium (3.5 - 5.1 mmol/L) 4.1 Plasma Chloride (98 - 107 mmol/L) 101 CO2 (Enzymatic) (21 - 32 mmol/L) 23 BUN (7 - 18 mg/dL) 17 Creatinine (0.6 - 1.3 mg/dL) 0.8 Est GFR ( Amer) (mL/min) >60 Est GFR (Non-Af Amer) (mL/min) >60 Glucose (70 - 110 mg/dL) 166 Hemoglobin A1c % Pending Plasma Calcium (8.5 - 10.1 mg/dL) 9.6 Plasma Magnesium (1.8 - 2.4 mg/dL) 1.9 Total Bilirubin (0.0 - 1.0 mg/dL) 1.2 AST (15 - 37 U/L) 20 ALT (12 - 78 U/L) 23 Alkaline Phosphatase (46 - 116 U/L) 69 Total Protein (6.4 - 8.2 g/dL) 7.0 Albumin (3.3 - 5.0 g/dL) 3.6 Amylase (25 - 115 U/L) Pending Lipase (73 - 393 U/L) Pending Cancelled Hematology WBC (4.5 - 11.5 K/uL) 14.9 RBC (4.00 - 5.20 M/uL) 4.57 Hgb (12.0 - 16.0 gm/dL) 14.3 Hct (36.0 - 46.0 %) 43.0 MCV (80 - 100 fL) 94 MCH (26 - 34 pg) 31 RDW (11.6 - 14.8 %) 13.4 Neut % (Auto) (50 - 75 %) 85.9 Lymph % (Auto) (25 - 40 %) 11.3 [place] % (Auto) (3 - 14 %) 2.8 Eos % (Auto) (0 - 4 %) 0 Baso % (Auto) (0 - 2 %) 0 Plt Count, EDTA (150 - 400 K/uL) 198 PUBS MCHC (31 - 37 g/dL) 33 CTA Thorax IMPRESSION: 1. No evidence of pulmonary embolus. 2. Mild interstitial change at the right lung base with moderate bronchial wall thickening. Consider bronchopneumonia or resolving pneumonia. 3. There is a 7 mm nodular density in the right anterior mid lung which is most likely postinflammatory, although a neoplastic nodule should be considered. Comparison with prior outside studies may be of assistance in evaluating. If these are unavailable, repeat noncontrast CT in 6 weeks is recommended. 4. Marked calcified atheromatous changes of the aorta and great vessels. 5. Findings discussed with Dr. Gu. All CT scans at this facility use dose modulation, iterative reconstruction, and/or weight-based dosing when appropriate to reduce radiation dose to as low as reasonably achievable. Dictated by: CASSIE COTTRELL MD D: SIENA;10/04/16 0631 Discharge Instructions/Meds For other recommendations regarding discharge diet, activity, followup, and discharge medications please see the patient's discharge instructions. Discharge condition: Good, improved Greater than 30 min. was spent in the patient's discharge preparation including discharge interview and physical examination, progress note, discharge instructions, and discharge summary The patient was interviewed and examined on the day of discharge. E&M Codes Discharge: Observation - All/[id number]
--- NOTE | 2016-10-05 12:21 | NUR ---
DC INSTRUCTIONS GIVEN TO PATIENT AND ALL QUESTIONS ANSWERED. PRESCRIPTIONS GIVEN TO PATIENT. PATIENT HAS HOME O2. DTR TO [employer] LEAD PATIENT TO TRANSPORT TO HOME.
--- NOTE | 2016-10-05 12:56 | NUR ---
IV DC'D IN RAC, HEMOSTASIS ACHIEVED. PATIENT DC TO HOME TRANSPORTED BY DAUGHTER AND ESCORTED OUT OF FACILITY BY THIS RN.
--- NOTE | 2016-10-08 20:56 | ED MED RECONCILIATION SUMMARY ---
Patient: YOBANY ELAINE Medication Reconciliation Report [facility] VisitID: [id number] [address] [place] [address] 81y, F Registration Date/Time: 10/04/2016 Weight: 61.2 kg Height/Length: 63 in. BMI: 23.9 ALLERGIES: No Known Drug Allergy The patient's Home Medications are listed below: THE FOLLOWING MEDICATIONS NEED TO BE RECONCILED: Albuterol Sulfate HFA Inhalation (108 (90 Base) mcg/act) 2 puffs , 4x a day AmLODIPine Besylate Oral (5 mg) 1 tablet, 2x a day Aspirin Oral (81 mg) 1 tablet, daily, evening Atenolol Oral (100 mg) 1 tablet, daily, morning Atorvastatin Calcium Oral (20 mg) 1 tablet, daily, evening Citalopram Hydrobromide Oral (20 mg) 1 tablet, daily, morning Lisinopril Oral (20 mg) 1 tablet, 2x a day The source(s) of the original Home Medication information: patient The following Medications were given to the patient in the Emergency Department: IV NS IV Fluids bolus 250 mL over 15 minute(s), then 250 mL/hr, administered: 10/04/2016 4:45:00 AM Albuterol [Neb Tx] Neb TX 2.5 mg, administered: 10/04/2016 4:50:00 AM SOLU-MEDROL [IVP] IVP 125 mg, administered: 10/04/2016 4:53:00 AM Lovenox [Subcutaneous] Subcutaneous 60 mg, administered: 10/04/2016 5:46:00 AM Azithromycin [PO] PO 500 mg, administered: 10/04/2016 5:45:00 AM The following Medications were prescribed to the patient: None.
--- NOTE | 2016-10-08 20:56 | ED MAR SUMMARY ---
..... Medication Administration Record [facility] [address] [place] [address] Patient: YOBANY ELAINE Visit ID: [id number] 81y, F Weight: 61.2 kg Height/Length: 63 in BMI: 23.9 ALLERGIES: No Known Drug Allergy Start 04:45 10/04/2016 Adela Lindsey R.N., Continued Upon Disposition 05:53 10/04/2016 Adela Lindsey R.N. Medication Administered: IV NS (SALINE), Dose: IV Fluids over 3 hour(s), Rate: 250 mL/hr, Bolus: 250 mL over 15 minute(s), Dispensed: 1000 mL bag, Site: #1 left hand. Medication Ordered: IV NS : initial bolus 250 mL (1000 mL/hr), then 250 mL/hr for X3 (NOW). Given 04:50 10/04/2016 Adela Lindsey R.N. Medication Administered: ALBUTEROL [NEB TX], Dose: 2.5 mg Nebulizer Neb TX. Medication Ordered: Albuterol Neb Tx 2 unit doses (NOW, [facility]). Given 04:53 10/04/2016 Adela Lindsey R.N. Medication Administered: SOLU-MEDROL [IVP] (METHYLPREDNISOLONE SODIUM SUCC), Dose: 125 mg IVP over 2 minute(s), Site: #1 left hand. Medication Ordered: Solu-MEDROL IV 125 mg (NOW). Given 05:45 10/04/2016 Adela Lindsey R.N. Medication Administered: AZITHROMYCIN [PO], Dose: 500 mg Tablets PO. Medication Ordered: Azithromycin PO 500 mg (NOW). Given 05:46 10/04/2016 Adela Lindsey R.N. Medication Administered: LOVENOX [SUBCUTANEOUS] (ENOXAPARIN SODIUM), Dose: 60 mg Subcutaneous. Medication Ordered: Lovenox Subcut 60 mg (NOW).
--- NOTE | 2016-10-08 20:56 | ED DISCHARGE INSTRUCTIONS ---
Patient: YOBANY ELAINE General Instructions [facility] VisitID: [id number] [address] [place] [address] 81y, F Registration Date/Time: 10/04/2016 Acquired hypothyroidism. Possible Pancreatitis - mild amylase elevation; moderate lipase elevation Pulmonary nodule (needs repeat chest imaging to follow) Elevated d-dimer (nonspecific) [place] resolving pneumonia. (Electronically signed by Vinayak Gu DO 10/04/2016 6:40)
--- NOTE | 2016-10-08 20:56 | ED DISCHARGE INSTRUCTIONS ---
Patient: YOBANY ELAINE General Instructions [facility] VisitID: [id number] [address] [place] [address] 81y, F Registration Date/Time: 10/04/2016 Acquired hypothyroidism. Possible Pancreatitis - mild amylase elevation; moderate lipase elevation Pulmonary nodule (needs repeat chest imaging to follow) Elevated d-dimer (nonspecific) [place] resolving pneumonia. (Electronically signed by Vinayak Gu DO 10/04/2016 6:40)
--- NOTE | 2016-10-08 20:56 | ED MAR SUMMARY ---
..... Medication Administration Record [facility] [address] [place] [place] [address] Patient: YOBANY ELAINE Visit ID: [id number] 81y, F Weight: 61.2 kg Height/Length: 63 in BMI: 23.9 ALLERGIES: No Known Drug Allergy Start 04:45 10/04/2016 Adela Lindsey R.N., Continued Upon Disposition 05:53 10/04/2016 Adela Lindsey R.N. Medication Administered: IV NS (SALINE), Dose: IV Fluids over 3 hour(s), Rate: 250 mL/hr, Bolus: 250 mL over 15 minute(s), Dispensed: 1000 mL bag, Site: #1 left hand. Medication Ordered: IV NS : initial bolus 250 mL (1000 mL/hr), then 250 mL/hr for X3 (NOW). Given 04:50 10/04/2016 Adela Lindsey R.N. Medication Administered: ALBUTEROL [NEB TX], Dose: 2.5 mg Nebulizer Neb TX. Medication Ordered: Albuterol Neb Tx 2 unit doses (NOW, [facility]). Given 04:53 10/04/2016 Adela Lindsey R.N. Medication Administered: SOLU-MEDROL [IVP] (METHYLPREDNISOLONE SODIUM SUCC), Dose: 125 mg IVP over 2 minute(s), Site: #1 left hand. Medication Ordered: Solu-MEDROL IV 125 mg (NOW). Given 05:45 10/04/2016 Adela Lindsey R.N. Medication Administered: AZITHROMYCIN [PO], Dose: 500 mg Tablets PO. Medication Ordered: Azithromycin PO 500 mg (NOW). Given 05:46 10/04/2016 Adela Lindsey R.N. Medication Administered: LOVENOX [SUBCUTANEOUS] (ENOXAPARIN SODIUM), Dose: 60 mg Subcutaneous. Medication Ordered: Lovenox Subcut 60 mg (NOW).
--- NOTE | 2016-10-08 20:56 | ED MED RECONCILIATION SUMMARY ---
Patient: YOBANY ELAINE Medication Reconciliation Report [facility] VisitID: [id number] [address] [place] [address] 81y, F Registration Date/Time: 10/04/2016 Weight: 61.2 kg Height/Length: 63 in. BMI: 23.9 ALLERGIES: No Known Drug Allergy The patient's Home Medications are listed below: THE FOLLOWING MEDICATIONS NEED TO BE RECONCILED: Albuterol Sulfate HFA Inhalation (108 (90 Base) mcg/act) 2 puffs , 4x a day AmLODIPine Besylate Oral (5 mg) 1 tablet, 2x a day Aspirin Oral (81 mg) 1 tablet, daily, evening Atenolol Oral (100 mg) 1 tablet, daily, morning Atorvastatin Calcium Oral (20 mg) 1 tablet, daily, evening Citalopram Hydrobromide Oral (20 mg) 1 tablet, daily, morning Lisinopril Oral (20 mg) 1 tablet, 2x a day The source(s) of the original Home Medication information: patient The following Medications were given to the patient in the Emergency Department: IV NS IV Fluids bolus 250 mL over 15 minute(s), then 250 mL/hr, administered: 10/04/2016 4:45:00 AM Albuterol [Neb Tx] Neb TX 2.5 mg, administered: 10/04/2016 4:50:00 AM SOLU-MEDROL [IVP] IVP 125 mg, administered: 10/04/2016 4:53:00 AM Lovenox [Subcutaneous] Subcutaneous 60 mg, administered: 10/04/2016 5:46:00 AM Azithromycin [PO] PO 500 mg, administered: 10/04/2016 5:45:00 AM The following Medications were prescribed to the patient: None.
== END 2016-10-05 12:55 | disposition home or self-care (01) ==
LOC: ED SRH 04:14 → ACUTE2 SRH 05:04 → TRANS SRH 05:04 → ACUTE2 SRH 05:04 → TRANS SRH 05:04 → ACUTE2 SRH 06:33
PROVIDERS: ADMIT Family Medicine
DX: J44.1 Chronic obstructive pulmonary disease with (acute) exacerbation (principal); J40 Bronchitis, not specified as acute or chronic; R74.8 Abnormal levels of other serum enzymes; R73.9 Hyperglycemia, unspecified; R91.1 Solitary pulmonary nodule; E78.5 Hyperlipidemia, unspecified; E03.9 Hypothyroidism, unspecified; F17.210 Nicotine dependence, cigarettes, uncomplicated
CPT/HCPCS: 29230; 29264; 85241; 90004; 90074; 90100; 90616; 91286; 91320; 91556; 92235; 92530; 92610; 92720; 93140; 94060; 95059